=== PATIENT | female | born 1935 | race Caucasian/White ===

== ENCOUNTER 2017-02-08 10:21 | Inpatient (IN) | payer MEDICARE ==
--- NOTE | 2017-02-08 10:42 | ER Document Report ---
ED Neuro Symptoms/Deficit - General Chief Complaint: S/S of Possible Stroke Stated Complaint: STROKE SYMPTOMS Notes: The patient is an 81-year-old female, past medical history prior CVAs/TIAs, hypertension, GERD, chronic leg/back pain, hypercholesterolemia, presents with slurred speech at 1900 yesterday and now not communicating since this morning. She is alert, but unable to follow commands. She is also worsening left-sided weakness. Her blood sugar by EMS is 100. Patient will follow commands, but has an expressive aphasia and unable to provide any additional history. She nods her head no when asked if she is in any pain. Past Medical History - General Information source: Emergency Med Personnel Cannot obtain history due to: Altered mental status - Social History Smoking Status: Unknown if Ever Smoked Family History: Reviewed & Not Pertinent Physical Exam - Notes Notes: PHYSICAL EXAMINATION: GENERAL: In no acute distress. HEAD: Atraumatic, normocephalic. EYES: Pupils equal round and reactive to light, extraocular movements intact, sclera anicteric, conjunctiva are normal. ENT: nares patent, oropharynx clear without exudates. Moist mucous membranes. NECK: Normal range of motion, supple without lymphadenopathy LUNGS: Breath sounds clear to auscultation bilaterally and equal. No wheezes rales or rhonchi. HEART: Regular rate and rhythm without murmurs ABDOMEN: Soft, nontender, normoactive bowel sounds. No guarding, no rebound. No masses appreciated. EXTREMITIES: No pitting or edema. No cyanosis. NEUROLOGICAL: Patient with slight right-sided facial droop, 1 out of 5 strength in left arm, 5 out of 5 strength in right arm, 1 out of 5 strength in bilateral legs. Expressive aphasia. No sensory changes. SKIN: Warm, Dry, normal turgor, no rashes or lesions noted. Course - Re-evaluation Re-evalutation: Patient with expressive aphasia, left-sided weakness and right leg weakness that started [address] does not show a bleed. NIHSS 15 and ABCD2 score 6. Not a tPa candidate due to 15 hours of symptoms. She passed her swallow screen and was given p.o. ASA. Patient's urine shows possible early UTI with positive nitrites, leuk esterase and 14 wbc's. With her leukocytosis, will begin Rocephin and send urine culture. Patient requires inpatient admission for further evaluation and treatment of her CVA. 02/08/17 13:[address] Umaña and he will admit patient inpatient [facility]. - Laboratory Result Diagrams: 02/08/17 11:00 02/08/17 11:00 - Diagnostic Test Radiology reviewed: Image reviewed, Reports reviewed Radiology results interpreted by me: CT Head: no acute changes, chronic changes CXR: NAD - EKG Interpretation by Me EKG shows normal: Sinus rhythm, Talent, Intervals, QRS Complexes, ST-T Waves Critical Care Note - Critical Care Note Total time excluding time spent on procedures (mins): 35 ED [employer]te[employer]ase Inc/Exc Criteria - Date/Time patient last known well: Date/Time: 02/07/2017 18:30 - Inclusion Criteria: 1: Patient presented to ED within 3 hours of acute ischemic stroke symptom onset ? -: No 2: Did baseline CT exclude intracranial hemorrhage and/or other risk factors? -: Yes 3: Is the age of the patient 18 years of age or greater? -: Yes : If any of the above questions are answered "NO" then stop, patient is not a candidate for Alteplase, : If all of the above questions are answered "YES" then continue with Exclusion Criteria. - Exclusion Criteria: 1: Is there evidence of intracranial hemorrhage on baseline CT? 2: Is there suspicion of subarachnoid hemorrhage (even if CT negative)? 3: Is there a history of serious head trauma, recent previous stroke or MA within 3 months? 4: Does the patient have a clinical presentation consistent with MA or post-MA pericarditis? 5: Is there history of intracranial hemorrhage? 6: On repeated measurement is Systolic BP greater than 185mmHg or Diastolic BP greater that 110 mmHg and is aggressive treatment needed to reduce blood pressure to these limits (e.g. constant infusion of an anti-hypertensive)? 7: Did the patient awake with stroke symptoms? 8: Has the patient had a lumbar puncture or an arterial puncture at a non- compressile site within 7 days? 9: With in the last 14 days did the patient have surgery or major trauma? 10: Is the patient or less than 2 weeks? 11: Was there any active bleeding or acute trauma? 12: Does the patient have intracranial neoplasm, arteriovenous malformation or aneurysm? 13: Does the patient have abnormal glucose (less than 50 or greater than 400mg/ dl)? Record glucose in Comment. 14: Patient has rapidly improving symptoms at the time Alteplase is to be Administered. 15: Does the patient have any risks for bleeding, including but not limited to: a.: Current use of Coumadin with PT greater than 15 seconds or INR greater than 1.7. b.: Current use of Pradaxa (Dabigatran). c.: Heparin administereed within the past 48 hours and PTT elevated. d.: Platelet count less than 100,000/mm. e.: Major surgery or serious trauma within 14 days. f.: Gastrointestinal or gynecological urinary bleeding within 14 days. g.: Myocardial Infarction (MA) within 3 months. : If the answer to any of the above questions is "YES" then stop, the patient is not a candidate for Alteplase. : If the answer to all of the above questions is "NO" then the patient may be eligible for the Administration of Alteplase. : If the patient is noted to have seizure activity at onset of Stroke symptoms; Consult Neurologist for further evaluation. - The patient is: -: Included and is eligible to receive Alteplase. *Initiate bed placement at higher level of care* Reviewd risks & benefits of thrombolytic therapy: I have reviewed the risks and benefits of thrombolytic therapy with the patient and/or his/her family. -: Excluded and not eligible to receive Alteplase for the above exclusions. -: Excluded and not eligible to receive Alteplase for other reasons (specify in comments): - Diagnosis of TIA: -: Patient presented with transient symptoms that are now resolved and no other neurologic findings are currently present. List symptoms in comments. -: Patient is NOT a candidate for tPA. -: ____(put name in comment) has been consulted for admission and continued evaluation of risk factor assessment. ED NIH Stroke Scale - NIH Stroke Scale When completed:: Before Alteplase *: 1. NIH scale should be completed with appropriate accompanying assessment tools. *: 2. The NIH should reflect what the patient is capable of doing and should not be coached by the clinician. 1a. Level of Consciousness: 0=Alert;keenly responsive -: 1=Drowsy -: 2=Obtunded -: 3=Coma/unresponsive or reflex to noxious stimuli. 1a. Responses: 0 1b. Orientation Questions: a. What month is it? -: b. How old are you? -: 0=Answers both questions correctly. -: 1=Answers one question correctly or patient is intubated or has orotracheal trauma. -: 2=Answers neither question correctly. 1b. Responses: 2 1c. Response to commands: a. Open and close eyes? -: b. Drip Pumper and release hand? -: Credit is given despite weakness. Demonstration of task is permitted. Substitute command if hands cannot be used. -: 0=Performs both tasks correctly -: 1=Performs one task correctly -: 2=Performs neither task correctly 1c. Responses: 0 2. Gaze: Establish eye contact and instruct patient to "Follow my finger" -: 0=Normal -: 1=Partial gaze palsy. Gaze is abnormal in one or both eyes, but where forced deviation or total gaze paresis is not present. -: 2=Forced deviation or total gaze paresis. 2. Responses: 0 3. Visual Frausto: Sees fingers in all four quadrants. -: 0=No visual loss. -: 1=Partial hemianopsia. -: 2=Complete hemianopsia. -: 3=Bilateral hemianopsia (including Cortical blindness) 3. Responses: 0 4. Facial Movement: Instruct patient to: -: a. Show me your teeth -: b. Raise your eyebrows -: c. Close your eyes -: d. Smile -: 0=Normal symmetrical movement -: 1=Minor paralysis (flattened nasolabial fold, asymmetry on smiling). -: 2=Partial paralysis (total or near total paralysis of lower face). -: 3=Complete paralysis of upper and lower face 4. Responses: 1 5. Motor functions (left arm): Alternate sides and extend each arm with palms down (90 degrees if sitting or 45 degrees for supine). -: 0=No drift;limb holds for full 10 seconds. -: 1=Drift; limb holds but drifts down before full 10 seconds, but does not hit bed. -: 2=Some effort against gravity; limb cannot get to or maintain position. -: 3=No effort against gravity; limb falls. -: 4=No movement. -: UN=Amputation, joint fusion, explain in comments. 5. Responses (left arm): 2 5. Motor Functions (right arm): Alternate sides and extend each arm with palms down (90 degrees if sitting or 45 degrees for supine). -: 0=No drift;limb holds for full 10 seconds. -: 1=Drift; limb holds but drifts down before full 10 seconds, but does not hit bed. -: 2=Some effort against gravity; limb cannot get to or maintain position. -: 3=No effort against gravity; limb falls. -: 4=No movement. -: UN=Amputation, joint fusion, explain in comments. 5. Responses (right arm): 0 6. Motor Functions (left leg): With patient lying supine, alternate sides and extend each leg (30 degrees always while supine). -: 0=No drift, leg holds position for full 5 seconds -: 1=Drift; leg falls before full 5 seconds but does not hit bed. -: 2=Some effort against gravity, leg falls to bed but some effort against gravity. -: 3=No effort against gravity, leg falls to bed immediately. -: 4=No movement. -: UN=Amputation, joint fusion; explain in comments. 6. Responses (left leg): 3 6. Motor Functions (right leg): With patient lying supine, alternate sides and extend each leg (30 degrees always while supine). -: 0=No drift, leg holds position for full 5 seconds -: 1=Drift; leg falls before full 5 seconds but does not hit bed. -: 2=Some effort against gravity, leg falls to bed but some effort against gravity. -: 3=No effort against gravity, leg falls to bed immediately. -: 4=No movement. -: UN=Amputation, joint fusion; explain in comments. 6. Responses (right leg): 3 7. Limb Ataxia: With eyes open instruct patient to: -: a. "Touch your finger to your nose". -: b. "Touch your heel to your scott" -: 0=Absent -: 1=Present in one limb. -: 2=Present in two limbs. -: UN=Amputation or joint fusion; explain in comments. 7. Responses: 0 8. Sensory: Test sensation using pinprick or noxious stimuli. Test as many body parts as possible. -: 0=Normal;no sensory loss -: 1=Mile to moderate sensory loss (patient feels pin prick but is less sharp on affected side). -: 2=Severe or total sensory loss. 8. Responses: 0 9. Best Language: Instruct patient to: -: a. "Describe what you see in this picture." -: b. "Name the items in this picture." -: c. "Read these sentences." -: 0=No aphasia, normal -: 1=Mild to moderate aphasia. -: 2=Severe aphasia -: 3=Mute, global aphasia, no usable speech or auditory comprehension. 9. Responses: 2 10. Articulation, Dysarthia: Instruct patient to: -: "Read these words" or "Repeat these words" -: 0=Normal -: 1=Mild to moderate; patient may slur some words but can be understood without difficulty. -: 2=Severe; patients speech so slurred as to be unintelligible in the absence of dysphasia. -: UN=Intubated or other physical barrier, explain in comments. 10. Responses: 2 11. Extinction or inattention: 0=No abnormality -: 1= Visual, tactile, auditory, spatial, or personal inattention or extinction to bilateral simulation in one or the sensory modalities. -: 2=Profound darron-inattention or darron-inattention to more than one modality; does not recognize own hand. 11. Responses: 0 Total Score: 15 Discharge - Discharge Clinical Impression: CVA (cerebral vascular accident) Qualifiers: CVA mechanism: unspecified Qualified Code(s): I63.9 - Cerebral infarction, unspecified UTI (urinary tract infection) Qualifiers: Urinary tract infection type: acute cystitis Hematuria presence: without hematuria Qualified Code(s): N30.00 - Acute cystitis without hematuria Condition: Serious Disposition: ADMITTED INPATIENT Admitting Provider: [facility] Admitted: [facility]
[2017-02-08] MEDS ORDERED: ASPIRIN 81 MG TABLET, CHEWABLE PO ONE (11:13)
[2017-02-08 11:18] LABS: ABSOLUTE BASOPHILS # (AUTO) 0.1 10^3/uL (0.0-0.2); ABSOLUTE EOSINOPHILS # (AUTO) 0.1 10^3/uL (0.0-0.6); ABSOLUTE LYMPHOCYTES (AUTO) 1.8 10^3/uL (0.5-4.7); ABSOLUTE MONOCYTES (AUTO) 0.7 10^3/uL (0.1-1.4); ABSOLUTE NEUT (AUTO) 8.3 10^3/uL (1.7-8.2); BASOPHILS % (AUTO) 0.6 % (0-2); EOSINOPHILS % (AUTO) 1.2 % (0-6); HEMATOCRIT 34.3 % (36.0-47.0); HEMOGLOBIN 10.9 g/dL (12.0-15.5); HGB HCT DIFFERENCE -1.6; LYMPHOCYTES % (AUTO) 16.1 % (13-45); MEAN CORPUSCULAR HEMOGLOBIN 26.3 pg (27.0-33.4); MEAN CORPUSCULAR HGB CONC 31.9 g/dL (32.0-36.0); MEAN CORPUSCULAR VOLUME 82 fl (80-97); MONOCYTES % (AUTO) 6.3 % (3-13); RED BLOOD COUNT 4.16 10^6/uL (3.72-5.28); SEGMENTED NEUTROPHILS % (AUTO) 75.8 % (42-78)
[2017-02-08 11:23] LABS: PARTIAL THROMBOPLASTIN TIME 22.4 SEC (23.5-35.8); PROTHROMBIN TIME 13.4 SEC (11.4-15.4)
[2017-02-08 11:36] LABS: ALANINE AMINOTRANSFERASE 21 U/L (9-52); ALBUMIN 3.9 g/dL (3.5-5.0); ALKALINE PHOSPHATASE 68 U/L (38-126); ANION GAP 12 (5-19); ASPARTATE AMINO TRANSFERASE 25 U/L (14-36); BILIRUBIN,DIRECT 0.2 mg/dL (0.0-0.4); BILIRUBIN,TOTAL 0.7 mg/dL (0.2-1.3); BLOOD UREA NITROGEN 15 mg/dL (7-20); CALCIUM 9.4 mg/dL (8.4-10.2); CARBON DIOXIDE 23 mmol/L (22-30); CHLORIDE 107 mmol/L (98-107); CREATINE KINASE 67 U/L (30-135); CREATININE RESULT 0.66 mg/dL (0.52-1.25); GLUCOSE 93 mg/dL (75-110); POTASSIUM 4.1 mmol/L (3.6-5.0); SODIUM 142.2 mmol/L (137-145); TOTAL PROTEIN 6.5 g/dL (6.3-8.2)
[2017-02-08 13:09] LABS: APPEARANCE,URINE SLIGHTLY-CLOUDY; BILIRUBIN,URINE NEGATIVE (NEGATIVE); GLUCOSE, URINE NEGATIVE (NEGATIVE); KETONES,URINE 20 mg/dL (NEGATIVE); LEUKOCYTE ESTERASE,URINE SMALL (NEGATIVE); NITRITE,URINE POSITIVE (NEGATIVE); PROTEIN,URINE NEGATIVE (NEGATIVE); URINE SPECIFIC GRAVITY 1.017; UROBILINOGEN,URINE NEGATIVE mg/dL (<2.0)
[2017-02-08] MEDS ORDERED: CEFTRIAXONE 1 GM/D5W RTU 50 ML IV ONE (13:38)
[2017-02-08] MEDS ORDERED: ONDANSETRON HCL INJ/PF 4 MG/2 ML SDV IV PRN (14:34)
[2017-02-08] MEDS ORDERED: ACETAMINOPHEN 325 MG TABLET PO PRN (14:34)
[2017-02-08] MEDS ORDERED: MAGNESIUM HYDROXIDE SUSP 30 ML UDCUP PO PRN (14:39)
[2017-02-08] MEDS ORDERED: DOCUSATE SODIUM 100 MG CAPSULE PO PRN (14:39)
--- NOTE | 2017-02-08 15:07 | PDOC H&P ---
History of Present Illness Admission Date/PCP: 02/08/17 14:02 Patient complains of: Weakness with an inability to talk History of Present Illness: TAMARA STEPHENS is a 81 year old female presented to the emergency department from home where she lives with her daughter as her primary caregiver and carries a 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 Daughter reports returning home from work yesterday at around 1700 to find her sleeping and somewhat lethargic upon arousing. She awoke in took her usual evening medications and then went back to sleep awaking again at 1900 but this time with slurred speech and generalized weakness and agitation. She was able to answer very clearly in yes or no responses to simple questions and she was able to swallow and took some aspirin at that time. The daughter checked on her through the night and she seemed to be sleeping okay. This morning, however, when she arose she was speaking only and mumbles, gerbils and word salad described by the daughter. She also could not move her left arm and leg. On arrival in the emergency department she was found to have an expressive aphasia with left arm and leg weakness. We were asked to admit for further evaluation and management of presumptive stroke. She takes an aspirin daily. 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 She does not smoke or consume alcohol. She has a long-standing history of hypertension with congestive heart failure and hyperlipidemia. She receives her primary care in [place] with a Dr. Rivera and has yet to establish with primary locally. She carries with her a community DO NOT RESUSCITATE. Past Medical History Cardiac Medical History: Reports: Congestive Heart Failure, Hyperlipidema, Hypertension, Pulmonary Embolism Denies: Atrial Fibrillation Pulmonary Medical History: Reports: None Neurological Medical History: Reports: Ischemic CVA Endocrine Medical History: Denies: Diabetes Mellitus Type 2 Renal/ Medical History: Reports: None Malignancy Medical History: Reports: None GI Medical History: Reports: Diverticulitis, Other - GI bleed Psychiatric Medical History: Reports: None Past Surgical History Past Surgical History: Reports: Vascular Surgery Social History Information Source: Relative Lives with: Family Smoking Status: Never Smoker Frequency of Alcohol Use: None Hx Recreational Drug Use: No Hx Prescription Drug Abuse: No - Advance Directive Resuscitation Status: Do Not Resuscitate Family History Family History: Reviewed & Not Pertinent, CAD Parental Family History Reviewed: Yes Children Family History Reviewed: Yes Sibling(s) Family History Reviewed.: Yes Medication/Allergy Allergies/Adverse Reactions: codeine Allergy (Verified 02/08/17 14:45) Review of Systems Constitutional: ABSENT: chills, fever(s), headache(s), weight gain, weight loss Eyes: ABSENT: visual disturbances Ears: ABSENT: hearing changes Cardiovascular: ABSENT: chest pain, dyspnea on exertion, edema, orthropnea, palpitations Respiratory: ABSENT: cough, hemoptysis Gastrointestinal: ABSENT: abdominal pain, constipation, diarrhea, hematemesis, hematochezia, nausea, vomiting Genitourinary: ABSENT: dysuria, hematuria Musculoskeletal: ABSENT: joint swelling Integumentary: ABSENT: rash, wounds Neurological: PRESENT: abnormal speech. ABSENT: abnormal gait, confusion, dizziness, focal weakness, syncope Psychiatric: ABSENT: anxiety, depression Endocrine: ABSENT: cold intolerance, heat intolerance, polydipsia, polyuria Hematologic/Lymphatic: ABSENT: easy bleeding, easy bruising Physical Exam Vital Signs: Temp Pulse Resp BP Pulse Ox 85 18 125/86 H 96 02/08/17 13:57 02/08/17 13:57 02/08/17 13:57 02/08/17 13:57 EXAM GENERAL: NAD; well developed, well nourished; no obese; alert and talkative HEENT: normocephalic, atraumatic; no conjunctival injection, no scleral icterus ; oral mucosa moist; RESPIRATORY: no accessory muscle use, no increased WOB, good air entry bilaterally; no wheezes, rales, rhonchi; no inspiratory crackles CARDIO: no JVD; RRR; no systolic murmur; no tachycardia GI: soft; nondistended; normal bowel sounds; no hepato spleno megaly; no rebound, rigidity, guarding VASCULAR: no carotid bruit; no abdominal bruit; no pallor; 2+ radial, DP pulse ; normal capillary refill NEURO: Left lateral gaze palsy, right-sided nystagmus, tongue protrudes midline , unable to perform cerebellar testing, left arm weak compared to right, bilateral upper extremity resting tremors new, increased muscle tone diffusely, decreased reflexes at the patella and brachial radialis but symmetric, seems able to answer simple yes or no questions and will follow simple one-step commands only, becomes very frustrated with an obvious expressive aphasia, no swallowing difficulty and passed her nursing bedside swallow eval, no pronator drift but not sure she completely understood the directions EXTREMITIES: no calf tender; no palpable cords in calf; no clubbing, cyanosis , pedal edema PSYCH: normal affect, frustrated mood SKIN: warm, very pale; moist; no petechiae; no telengectasias; no jaundice; no rash Results Laboratory Results: Labs reviewed, CMP normal, CBC unremarkable, coags normal, troponin negative at less than 0.012 Impressions: Chest X-Ray 02/08/17 10:23 IMPRESSION: NO ACUTE RADIOGRAPHIC FINDING IN THE CHEST. Head CT 02/08/17 10:23 IMPRESSION: CHRONIC CHANGES OF ATROPHY AND MICROVASCULAR ISCHEMIA. NO ACUTE PROCESS. Status: Image reviewed by me - Noncontrasted CT of the head reviewed and I disagree with the radiologist, in the left caudate nucleus, external capsule and perhaps even the internal capsule I see very subtle highlighted areas; furthermore there appears to be a large right occipital infarct with resulting encephalomalacia do not believe it is a sulcus Assessment & Plan - Diagnosis (1) CVA (cerebral vascular accident) Qualifiers: CVA mechanism: unspecified Qualified Code(s): I63.9 - Cerebral infarction, unspecified Is this a current diagnosis for this admission?: YesPlan: Patient will be admitted to the [facility] for continued neurologic exam, initiation of physical, occupational, speech therapy, changed to Plavix therapy, check lipids, carotid Dopplers, MRI of the brain, echocardiogram, hemoglobin A1c and other electrolytes looking for correctable causes. Allow permissive hypertension for the first 48 hours. Check lipid panel in the morning. (2) Hypertension Is this a current diagnosis for this admission?: Yes (3) Hyperlipidemia Is this a current diagnosis for this admission?: Yes (4) History of DVT (deep vein thrombosis) Is this a current diagnosis for this admission?: Yes (5) History of GI bleed Is this a current diagnosis for this admission?: Yes (6) Presence of IVC filter Is this a current diagnosis for this admission?: Yes (7) Do not resuscitate Is this a current diagnosis for this admission?: Yes - Time Time Spent: 50 to 70 Minutes Medications reviewed and adjusted accordingly: Yes Anticipated discharge: SNF Within: within 72 hours - Inpatient Certification Medical Necessity: Significant Comorbidiites Make Outpatient Treatment Too Risky , Need For Continuous Telemetry Monitoring, Need for Neurological Checks, Risk of Complication if Not Cared For in Hospital
--- NOTE | 2017-02-08 17:16 | EKG REPORT ---
SEVERITY:- BORDERLINE ECG - SINUS RHYTHM BORDERLINE PROLONGED QT INTERVAL : Confirmed by: Ronald Collado MD 08-Feb-2017 17:15:59
[2017-02-08] MEDS: GABAPENTIN 100 MG CAPSULE PO SCH (18:05)
[2017-02-08] MEDS: ATORVASTATIN CALCIUM 80 MG TABLET PO SCH (22:53)
[2017-02-08] MEDS: LORAZEPAM 1 MG TABLET PO SCH (22:53)
[2017-02-08] MEDS: FAMOTIDINE INJ/PF 20 MG/2 ML SDV IV SCH (22:53)
[2017-02-09 06:37] LABS: CHOLESTEROL 137.81 mg/dL (0-200); Direct HDL 58 mg/dL (>40); TRIGLYCERIDES 96 mg/dL (<150)
[2017-02-09 06:47] LABS: DIRECT LDL 56 mg/dL (<100)
[2017-02-09] MEDS: ENOXAPARIN SODIUM INJ 40 MG/0.4 ML DISP.SYRIN SUBCUT SCH (08:44)
[2017-02-09] MEDS: GABAPENTIN 100 MG CAPSULE PO SCH ×2 (10:21→17:21)
[2017-02-09] MEDS: CLOPIDOGREL BISULFATE 75 MG TABLET PO SCH (10:21)
[2017-02-09] MEDS: CITALOPRAM HYDROBROMIDE 20 MG TABLET PO SCH (10:21)
[2017-02-09] MEDS: FAMOTIDINE INJ/PF 20 MG/2 ML SDV IV SCH ×2 (10:22→21:34)
--- NOTE | 2017-02-09 12:02 | PDOC PROGRESS REPORT ---
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 Daughter reports returning home from work yesterday at around 1700 to find her sleeping and somewhat lethargic upon arousing. She awoke in took her usual evening medications and then went back to sleep awaking again at 1900 but this time with slurred speech and generalized weakness and agitation. She was able to answer very clearly in yes or no responses to simple questions and she was able to swallow and took some aspirin at that time. The daughter checked on her through the night and she seemed to be sleeping okay. This morning, however, when she arose she was speaking only and mumbles, gerbils and word salad described by the daughter. She also could not move her left arm and leg. On arrival in the emergency department she was found to have an expressive aphasia with left arm and leg weakness. We were asked to admit for further evaluation and management of presumptive stroke. She takes an aspirin daily. 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 She does not smoke or consume alcohol. She has a long-standing history of hypertension with congestive heart failure and hyperlipidemia. She receives her primary care in [place] with a Dr. Rivera and has yet to establish with primary locally. She carries with her a community DO NOT RESUSCITATE. admitted and monitored overnight on telemetry without significant ectopy or arrhythmia. MRI of brain shows significant old stroke and encephalomalacia with mod to severe vascular ischemic disease but no focal area of new ischemia. echo and carotids are pending Friday. lipid panel is good. B12 is normal. Troponin is negative. subjective: she is overall improved, her speech is better, able to complete some sentences though still word searching at times. she laughs uncontrollably at times, not always in context. she is moving all 4 ext's and her strength is now symmetric. daughter at the bedside says she did not do well with PT, unable to bear her own weight or ambulate. Physical Exam Vital Signs: Temp Pulse Resp BP Pulse Ox 97.8 F 87 16 117/56 L 96 02/09/17 08:02 02/09/17 08:02 02/09/17 08:02 02/09/17 08:02 02/09/17 08:02 Intake & Output 02/08/17 02/09/17 02/10/17 06:59 06:59 06:59 Intake Total 15 Balance 15 Weight 62.7 kg EXAM GENERAL: NAD; well developed, well nourished; no obese; alert and talkative, able to complete most sentences and answers are appropriate HEENT: normocephalic, atraumatic; no conjunctival injection, no scleral icterus ; oral mucosa moist; RESPIRATORY: no accessory muscle use, no increased WOB, good air entry bilaterally; no wheezes, rales, rhonchi; no inspiratory crackles CARDIO: no JVD; RRR; no systolic murmur; no tachycardia GI: soft; nondistended; normal bowel sounds; no rebound, rigidity, guarding; nontender VASCULAR: no pallor; 2+ radial, DP pulse; normal capillary refill NEURO: resolution of Left lateral gaze palsy, & right-sided nystagmus; tongue protrudes midline, no swallowing difficulty and passed her nursing bedside swallow eval, no pronator drift; strength is bilat at least 4/5; sensation intact - markedly improved neuro exam today EXTREMITIES: no calf tender; no palpable cords in calf; no clubbing, cyanosis , pedal edema PSYCH: abnormal affect, normal mood SKIN: warm, very pale; moist; no petechiae; no telengectasias; no jaundice; no rash Results Laboratory Results: 02/09/17 05:40 Triglycerides 96 Cholesterol 137.81 LDL Cholesterol Direct 56 VLDL Cholesterol 19.0 HDL Cholesterol 58 Vitamin B12 480.0 Impressions: Head MRI 02/08/17 00:00 IMPRESSION: ATROPHY, ENCEPHALOMALACIA, AND CHRONIC MICRO-VASCULAR ISCHEMIC CHANGES DETAILED ABOVE. OTHERWISE NORMAL MRI OF THE BRAIN WITHOUT INTRAVENOUS GADOLINIUM CONTRAST. Chest X-Ray 02/08/17 10:23 IMPRESSION: NO ACUTE RADIOGRAPHIC FINDING IN THE CHEST. Head CT 02/08/17 10:23 IMPRESSION: CHRONIC CHANGES OF ATROPHY AND MICROVASCULAR ISCHEMIA. NO ACUTE PROCESS. Status: Image reviewed by me - agree with radiology Assessment & Plan - Diagnosis (1) CVA (cerebral vascular accident) Qualifiers: CVA mechanism: unspecified Qualified Code(s): I63.9 - Cerebral infarction, unspecified Is this a current diagnosis for this admission?: YesPlan: MRI neg for acute ischemia but no question clinically for a CVA. daughter also now reports worsening ST memory loss, wandering and emotional lability at home, questioning dementia confounding her picture. continue physical, occupational, speech therapy; changed to Plavix therapy f/u carotid Dopplers, echocardiogram, hemoglobin A1c and other electrolytes looking for correctable causes. Allow permissive hypertension for the first 48 hours. (2) Hypertension Is this a current diagnosis for this admission?: Yes (3) Hyperlipidemia Is this a current diagnosis for this admission?: Yes (4) History of DVT (deep vein thrombosis) Is this a current diagnosis for this admission?: Yes (5) History of GI bleed Is this a current diagnosis for this admission?: Yes (6) Presence of IVC filter Is this a current diagnosis for this admission?: Yes (7) Do not resuscitate Is this a current diagnosis for this admission?: Yes - Time Time Spent with patient: 25-34 minutes Anticipated discharge: SNF Within: within 48 hours
[2017-02-09] MEDS: LORAZEPAM 1 MG TABLET PO SCH (21:32)
[2017-02-09] MEDS: ATORVASTATIN CALCIUM 80 MG TABLET PO SCH (21:32)
[2017-02-10 06:13] LABS: ABSOLUTE BASOPHILS # (AUTO) 0.1 10^3/uL (0.0-0.2); ABSOLUTE EOSINOPHILS # (AUTO) 0.4 10^3/uL (0.0-0.6); ABSOLUTE LYMPHOCYTES (AUTO) 2.4 10^3/uL (0.5-4.7); ABSOLUTE NEUT (AUTO) 4.3 10^3/uL (1.7-8.2); EOSINOPHILS % (AUTO) 4.3 % (0-6); HEMATOCRIT 32.9 % (36.0-47.0); HEMOGLOBIN 10.7 g/dL (12.0-15.5); HGB HCT DIFFERENCE -0.8; LYMPHOCYTES % (AUTO) 29.9 % (13-45); MEAN CORPUSCULAR HEMOGLOBIN 26.5 pg (27.0-33.4); MEAN CORPUSCULAR HGB CONC 32.4 g/dL (32.0-36.0); MEAN CORPUSCULAR VOLUME 82 fl (80-97); MONOCYTES % (AUTO) 12.3 % (3-13); RED BLOOD COUNT 4.02 10^6/uL (3.72-5.28); RED CELL DISTRIBUTION WIDTH 16.2 % (11.5-14.0); SEGMENTED NEUTROPHILS % (AUTO) 52.5 % (42-78); WHITE BLOOD COUNT 8.2 10^3/uL (4.0-10.5)
[2017-02-10] MEDS: ENOXAPARIN SODIUM INJ 40 MG/0.4 ML DISP.SYRIN SUBCUT SCH (08:39)
[2017-02-10] MEDS: CLOPIDOGREL BISULFATE 75 MG TABLET PO SCH (11:32)
[2017-02-10] MEDS: CITALOPRAM HYDROBROMIDE 20 MG TABLET PO SCH (11:32)
[2017-02-10] MEDS: GABAPENTIN 100 MG CAPSULE PO SCH ×2 (11:32→18:14)
[2017-02-10] MEDS: FAMOTIDINE INJ/PF 20 MG/2 ML SDV IV SCH ×2 (11:33→22:57)
--- NOTE | 2017-02-10 15:46 | PDOC PROGRESS REPORT ---
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 Daughter reports returning home from work yesterday at around 1700 to find her sleeping and somewhat lethargic upon arousing. She awoke in took her usual evening medications and then went back to sleep awaking again at 1900 but this time with slurred speech and generalized weakness and agitation. She was able to answer very clearly in yes or no responses to simple questions and she was able to swallow and took some aspirin at that time. The daughter checked on her through the night and she seemed to be sleeping okay. This morning, however, when she arose she was speaking only and mumbles, gerbils and word salad described by the daughter. She also could not move her left arm and leg. On arrival in the emergency department she was found to have an expressive aphasia with left arm and leg weakness. We were asked to admit for further evaluation and management of presumptive stroke. She takes an aspirin daily. 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 She does not smoke or consume alcohol. She has a long-standing history of hypertension with congestive heart failure and hyperlipidemia. She receives her primary care in [place] with a Dr. Rivera and has yet to establish with primary locally. She carries with her a community DO NOT RESUSCITATE. admitted and monitored overnight on telemetry without significant ectopy or arrhythmia. MRI of brain shows significant old stroke and encephalomalacia with mod to severe vascular ischemic disease but no focal area of new ischemia. echo and carotids are pending Friday. lipid panel is good. B12 is normal. Troponin is negative. subjective: she is overall improved, her speech is better, able to complete some sentences though still word searching at times. she is moving all 4 ext's and her strength is now symmetric. daughter at the bedside says she did not do well with PT, barely able to bear her own weight and ambulates with 2 assist and walker but only short distances. Physical Exam Vital Signs: Temp Pulse Resp BP Pulse Ox 97.5 F 89 20 136/59 H 99 02/10/17 12:00 02/10/17 14:00 02/10/17 12:00 02/10/17 12:00 02/10/17 12:00 Intake & Output 02/09/17 02/10/17 02/11/17 06:59 06:59 06:59 Intake Total 15 620 218 Balance 15 620 218 Weight 62.7 kg 63 kg EXAM GENERAL: NAD; well developed, well nourished; no obese; alert and talkative, able to complete most sentences and answers are appropriate; still stutters and struggles for words at times becoming very frustrated HEENT: normocephalic, atraumatic; no conjunctival injection, no scleral icterus ; oral mucosa moist; RESPIRATORY: no accessory muscle use, no increased WOB, good air entry bilaterally; no wheezes, rales, rhonchi; no inspiratory crackles CARDIO: no JVD; RRR; no systolic murmur; no tachycardia GI: soft; nondistended; normal bowel sounds; no rebound, rigidity, guarding; nontender VASCULAR: no pallor; 2+ radial, DP pulse; normal capillary refill NEURO: resolution of Left lateral gaze palsy & right-sided nystagmus; tongue protrudes midline, no swallowing difficulty and passed her nursing bedside swallow eval, no pronator drift; strength is symmetric bilat at least 4/5; sensation intact - markedly improved neuro exam today EXTREMITIES: no calf tender; no palpable cords in calf; no clubbing, cyanosis , pedal edema PSYCH: abnormal affect, normal mood SKIN: warm, very pale; moist; no petechiae; no telengectasias; no jaundice; no rash Results Laboratory Results: 02/10/17 05:18 02/10/17 05:18 WBC 8.2 RBC 4.02 Hgb 10.7 L Hct 32.9 L MCV 82 MCH 26.5 L MCHC 32.4 RDW 16.2 H Plt Count 355 Seg Neutrophils % 52.5 Lymphocytes % 29.9 Monocytes % 12.3 Eosinophils % 4.3 Basophils % 1.0 Absolute Neutrophils 4.3 Absolute Lymphocytes 2.4 Absolute Monocytes 1.0 Absolute Eosinophils 0.4 Absolute Basophils 0.1 Impressions: Head MRI 02/08/17 00:00 IMPRESSION: ATROPHY, ENCEPHALOMALACIA, AND CHRONIC MICRO-VASCULAR ISCHEMIC CHANGES DETAILED ABOVE. OTHERWISE NORMAL MRI OF THE BRAIN WITHOUT INTRAVENOUS GADOLINIUM CONTRAST. Chest X-Ray 02/08/17 10:23 IMPRESSION: NO ACUTE RADIOGRAPHIC FINDING IN THE CHEST. Head CT 02/08/17 10:23 IMPRESSION: CHRONIC CHANGES OF ATROPHY AND MICROVASCULAR ISCHEMIA. NO ACUTE PROCESS. Status: Imported from PACS Assessment & Plan - Diagnosis (1) CVA (cerebral vascular accident) Qualifiers: CVA mechanism: unspecified Qualified Code(s): I63.9 - Cerebral infarction, unspecified Is this a current diagnosis for this admission?: Yes (2) Hypertension Is this a current diagnosis for this admission?: Yes (3) Hyperlipidemia Is this a current diagnosis for this admission?: Yes (4) History of DVT (deep vein thrombosis) Is this a current diagnosis for this admission?: Yes (5) History of GI bleed Is this a current diagnosis for this admission?: Yes (6) Presence of IVC filter Is this a current diagnosis for this admission?: Yes (7) Do not resuscitate Is this a current diagnosis for this admission?: Yes - Time Time Spent with patient: 25-34 minutes - Plan Summary Plan Summary: Discussed with [facility] social insurance adviser who will begin seeking placement for rehabilitation options. Discussed with the daughter at the bedside, all questions asked and answered to her satisfaction.
--- NOTE | 2017-02-10 20:17 | XCELERA REPORT ---
[address] [address] Transthoracic Echocardiogram Report Name: TAMARA STEPHENS Age: 81 yrs Gender: Female : 1935 Patient Status: Inpatient Patient Location: 3W\S\320\S\A Study Date: 02/10/2017 01:47 PM Height: 63 in Weight: 130 lb BSA: 1.6 m2 Procedure: A complete two-dimensional transthoracic echocardiogram was performed (2D, M-mode, spectral and color flow Doppler). The study was technically difficult with many images being suboptimal in quality. Reason For Study: cva Ordering Physician: DONAVON JOHNSON Performed By: Celestine Alejandre Interpretation Summary The study was technically difficult with many images being suboptimal in quality. The Ejection Fraction estimate is 50-55% The left ventricular ejection fraction is preserved. The left ventricle is grossly normal size. There is borderline concentric left ventricular hypertrophy. Doppler measurements suggest pseudonormalized left ventricular relaxation, which is associated with grade II/IV or mild to moderate diastolic dysfunction Wall motion cannot be accurately commented on, but no definite regional wall motion abnormalities noted. The right ventricular systolic function is normal. The right atrium is normal in size The left atrium is mildly dilated. There is a trace to mild amount of mitral regurgitation There is no mitral valve stenosis. There is a mild to moderate amount of aortic regurgitation There is no aortic valve stenosis There is a trace or physiologic amount of tricuspid regurgitation Tricuspid regurgitation jet envelope not well defined to measure RV systolic pressure accurately. There is no pericardial effusion. No definite cardiac source of CVA/TIA noted on this particular trans- thoracic study. Consider DEEPAK if clinically indicated. MMode/2D Measurements \T\ Calculations RVDd: 2.2 cm LVIDd: 4.8 cm FS: 24.9 % Ao root diam: 2.8 cm IVSd: 0.89 cm LVIDs: 3.6 cm EDV(Teich): 106.2 ml LVPWd: 0.90 cm ESV(Teich): 53.9 ml Ao root area: 6.1 cm2 EF(Teich): 49.3 % LA dimension: 3.9 cm Doppler Measurements \T\ Calculations MV E max sofia: MV P1/2t max sofia: Ao V2 max: AI max sofia: 93.3 cm/sec 95.3 cm/sec 173.0 cm/sec 396.2 cm/sec MV A max sofia: MV P1/2t: 46.3 msec Ao max PG: AI max P.1 cm/sec 12.0 mmHg 62.9 mmHg MV E/A: 0.90 MVA(P1/2t): 4.7 cm2 AI dec slope: MV dec slope: 602.1 cm/sec2 329.8 cm/sec2 AI P1/2t: 351.8 msec LV V1 max PG: PA V2 max: TR max sofia: RAP systole: 2.7 mmHg 80.0 cm/sec 222.1 cm/sec 10.0 mmHg LV V1 max: PA max P.6 mmHg TR max P.9 cm/sec 20.2 mmHg RVSP(TR): 30.2 mmHg Left Ventricle The left ventricle is grossly normal size. There is borderline concentric left ventricular hypertrophy. The left ventricular ejection fraction is preserved. The Ejection Fraction estimate is 50-55%. Doppler measurements suggest pseudonormalized left ventricular relaxation, which is associated with grade II/IV or mild to moderate diastolic dysfunction. Wall motion cannot be accurately commented on, but no definite regional wall motion abnormalities noted. Right Ventricle The right ventricle is grossly normal size. There is normal right ventricular wall thickness. The right ventricular systolic function is normal. Atria The right atrium is normal in size. The left atrium is mildly dilated. Interarterial septum not well visualized and not well dopplered. Cannot comment on ASD/PFO presence. Mitral Valve The mitral valve leaflets are sclerotic, but show no functional abnormalities. There is no mitral valve stenosis. There is a trace to mild amount of mitral regurgitation. Aortic Valve The aortic valve is sclerotic, but shows no functional abnormality. There is no aortic valve stenosis. There is a mild to moderate amount of aortic regurgitation. Tricuspid Valve The tricuspid valve is not well visualized secondary to technical limitations. There is no tricuspid stenosis. There is a trace or physiologic amount of tricuspid regurgitation. Tricuspid regurgitation jet envelope not well defined to measure RV systolic pressure accurately. Pulmonic Valve The pulmonic valve is not well visualized. Great Vessels The aortic root is not well visualized. The inferior vena cava was not well visualized. Effusions There is no pericardial effusion. Incidental Findings No definite cardiac source of CVA/TIA noted on this particular trans- thoracic study. Consider DEEPAK if clinically indicated. May consider mobile cardiac telemetry monitoring (MCT) for ruling out transient AFIB. : DONAVON JOHNSON > Anastasia Renee
[2017-02-10] MEDS: ATORVASTATIN CALCIUM 80 MG TABLET PO SCH (22:57)
[2017-02-10] MEDS: LORAZEPAM 1 MG TABLET PO SCH (22:57)
[2017-02-11 06:33] LABS: ABSOLUTE BASOPHILS # (AUTO) 0.1 10^3/uL (0.0-0.2); ABSOLUTE EOSINOPHILS # (AUTO) 0.4 10^3/uL (0.0-0.6); ABSOLUTE LYMPHOCYTES (AUTO) 2.4 10^3/uL (0.5-4.7); ABSOLUTE MONOCYTES (AUTO) 0.9 10^3/uL (0.1-1.4); BASOPHILS % (AUTO) 0.8 % (0-2); EOSINOPHILS % (AUTO) 5.5 % (0-6); HEMATOCRIT 34.8 % (36.0-47.0); HEMOGLOBIN 11.1 g/dL (12.0-15.5); HGB HCT DIFFERENCE -1.5; LYMPHOCYTES % (AUTO) 30.3 % (13-45); MEAN CORPUSCULAR HEMOGLOBIN 26.4 pg (27.0-33.4); MEAN CORPUSCULAR HGB CONC 31.8 g/dL (32.0-36.0); MEAN CORPUSCULAR VOLUME 83 fl (80-97); RED CELL DISTRIBUTION WIDTH 15.9 % (11.5-14.0); SEGMENTED NEUTROPHILS % (AUTO) 51.4 % (42-78); WHITE BLOOD COUNT 7.9 10^3/uL (4.0-10.5)
[2017-02-11 07:06] LABS: ALANINE AMINOTRANSFERASE 23 U/L (9-52); ALBUMIN 3.9 g/dL (3.5-5.0); ALKALINE PHOSPHATASE 66 U/L (38-126); ANION GAP 9 (5-19); ASPARTATE AMINO TRANSFERASE 34 U/L (14-36); BILIRUBIN,DIRECT 0.2 mg/dL (0.0-0.4); BILIRUBIN,TOTAL 0.7 mg/dL (0.2-1.3); BLOOD UREA NITROGEN 8 mg/dL (7-20); CALCIUM 9.7 mg/dL (8.4-10.2); CARBON DIOXIDE 29 mmol/L (22-30); CHLORIDE 105 mmol/L (98-107); CREATININE RESULT 0.66 mg/dL (0.52-1.25); GLUCOSE 89 mg/dL (75-110); POTASSIUM 4.3 mmol/L (3.6-5.0); SODIUM 142.6 mmol/L (137-145); TOTAL PROTEIN 6.6 g/dL (6.3-8.2)
[2017-02-11] MEDS: CITALOPRAM HYDROBROMIDE 20 MG TABLET PO SCH (11:23)
[2017-02-11] MEDS: FAMOTIDINE INJ/PF 20 MG/2 ML SDV IV SCH ×2 (11:24→21:29)
[2017-02-11] MEDS: CLOPIDOGREL BISULFATE 75 MG TABLET PO SCH (11:24)
[2017-02-11] MEDS: GABAPENTIN 100 MG CAPSULE PO SCH ×2 (11:24→18:30)
[2017-02-11] MEDS: ENOXAPARIN SODIUM INJ 40 MG/0.4 ML DISP.SYRIN SUBCUT SCH (11:25)
--- NOTE | 2017-02-11 16:31 | PDOC PROGRESS REPORT ---
Subjective Progress Note for:: 02/11/17 Subjective:: Patient has been quite stable ; she still has aphasia She is tolerating a mechanical soft diet She has been working with physical therapy She has a bed at [facility] [place] in skilled rehabilitation Physical Exam Vital Signs: Temp Pulse Resp BP Pulse Ox 97.9 F 91 18 133/50 H 96 02/11/17 11:25 02/11/17 11:25 02/11/17 11:25 02/11/17 11:25 02/11/17 11:25 Intake & Output 02/10/17 02/11/17 02/12/17 00:59 00:59 00:59 Intake Total 630 576 355 Balance 630 576 355 Weight 62.7 kg 63 kg 68.8 kg General appearance: PRESENT: no acute distress, cooperative Head exam: PRESENT: atraumatic, normocephalic Eye exam: PRESENT: conjunctiva pink, EOMI, PERRLA, other - Is a slight facial droop. ABSENT: scleral icterus Mouth exam: PRESENT: moist, tongue midline Neck exam: ABSENT: carotid bruit, JVD, lymphadenopathy, thyromegaly Respiratory exam: PRESENT: clear to auscultation [place]. ABSENT: rales, rhonchi, wheezes Cardiovascular exam: PRESENT: RRR. ABSENT: diastolic murmur, rubs, systolic murmur GI/Abdominal exam: PRESENT: normal bowel sounds, soft. ABSENT: distended, guarding, mass, organolmegaly, rebound, tenderness Extremities exam: PRESENT: full ROM. ABSENT: calf tenderness, clubbing, pedal edema Neurological exam: PRESENT: alert, awake, CN II-XII grossly intact Skin exam: PRESENT: dry, intact, warm. ABSENT: cyanosis, rash Results Laboratory Results: 02/11/17 05:34 02/11/17 05:34 02/11/17 02/11/17 05:34 05:34 WBC 7.9 RBC 4.20 Hgb 11.1 L Hct 34.8 L MCV 83 MCH 26.4 L MCHC 31.8 L RDW 15.9 H Plt Count 357 Seg Neutrophils % 51.4 Lymphocytes % 30.3 Monocytes % 12.0 Eosinophils % 5.5 Basophils % 0.8 Absolute Neutrophils 4.0 Absolute Lymphocytes 2.4 Absolute Monocytes 0.9 Absolute Eosinophils 0.4 Absolute Basophils 0.1 Sodium 142.6 Potassium 4.3 Chloride 105 Carbon Dioxide 29 Anion Gap 9 BUN 8 Creatinine 0.66 Est GFR ( Amer) > 60 Est GFR (Non-Af Amer) > 60 Glucose 89 Calcium 9.7 Total Bilirubin 0.7 AST 34 ALT 23 Alkaline Phosphatase 66 Total Protein 6.6 Albumin 3.9 Impressions: Head MRI 02/08/17 00:00 IMPRESSION: ATROPHY, ENCEPHALOMALACIA, AND CHRONIC MICRO-VASCULAR ISCHEMIC CHANGES DETAILED ABOVE. OTHERWISE NORMAL MRI OF THE BRAIN WITHOUT INTRAVENOUS GADOLINIUM CONTRAST. Chest X-Ray 02/08/17 10:23 IMPRESSION: NO ACUTE RADIOGRAPHIC FINDING IN THE CHEST. Head CT 02/08/17 10:23 IMPRESSION: CHRONIC CHANGES OF ATROPHY AND MICROVASCULAR ISCHEMIA. NO ACUTE PROCESS. Carotid Doppler Study 02/10/17 00:00 IMPRESSION: NO HEMODYNAMICALLY SIGNIFICANT STENOSIS. Assessment & Plan - Diagnosis (1) CVA (cerebral vascular accident) Qualifiers: CVA mechanism: unspecified Qualified Code(s): I63.9 - Cerebral infarction, unspecified Is this a current diagnosis for this admission?: Yes (2) Do not resuscitate Is this a current diagnosis for this admission?: Yes (3) Hyperlipidemia Is this a current diagnosis for this admission?: Yes (4) Hypertension Is this a current diagnosis for this admission?: Yes (5) Presence of IVC filter Is this a current diagnosis for this admission?: Yes (6) UTI (urinary tract infection) Qualifiers: Urinary tract infection type: acute cystitis Hematuria presence: without hematuria Qualified Code(s): N30.00 - Acute cystitis without hematuria Is this a current diagnosis for this admission?: YesPlan: Urine culture had been performed likely because patient could not void. We will give the patient 5 days of Keflex 500 mg by mouth twice a day - Time Time Spent with patient: Patient to be transferred tomorrow to skilled rehabilitation We did add vitamin B-12 thousand micrograms daily as the level was on the low side at 400 We will obtain TSH prior to her release Patient to be discharged in a.m. if stable Time Spent with patient: 15-24 minutes
[2017-02-11] MEDS ORDERED: CYANOCOBALAMIN (VITAMIN B-12) 1,000 MCG TABLET PO SCH (18:00)
[2017-02-11] MEDS: ATORVASTATIN CALCIUM 80 MG TABLET PO SCH (21:23)
[2017-02-11] MEDS: LORAZEPAM 1 MG TABLET PO SCH (21:23)
[2017-02-11] MEDS: CEPHALEXIN 500 MG CAPSULE PO SCH (21:23)
[2017-02-12] MEDS: ENOXAPARIN SODIUM INJ 40 MG/0.4 ML DISP.SYRIN SUBCUT SCH (07:33)
[2017-02-12] MEDS: FAMOTIDINE INJ/PF 20 MG/2 ML SDV IV SCH (09:46)
[2017-02-12] MEDS: CEPHALEXIN 500 MG CAPSULE PO SCH (09:47)
[2017-02-12] MEDS: CLOPIDOGREL BISULFATE 75 MG TABLET PO SCH (09:47)
[2017-02-12] MEDS: CITALOPRAM HYDROBROMIDE 20 MG TABLET PO SCH (09:47)
[2017-02-12] MEDS: GABAPENTIN 100 MG CAPSULE PO SCH (09:47)
--- NOTE | 2017-02-12 09:59 | PDOC TRANSFER SUMMARY ---
General - Admit/Disc Date/PCP Admission Date/Primary Care Provider: 02/08/17 14:34 Discharge Date: 02/12/17 - Discharge Diagnosis (1) CVA (cerebral vascular accident) Is this a current diagnosis for this admission?: Yes (2) Do not resuscitate Is this a current diagnosis for this admission?: Yes (3) Hyperlipidemia Is this a current diagnosis for this admission?: Yes (4) Hypertension Is this a current diagnosis for this admission?: Yes (5) Presence of IVC filter Is this a current diagnosis for this admission?: Yes (6) UTI (urinary tract infection) Is this a current diagnosis for this admission?: Yes - Additional Information Resuscitation Status: Do Not Resuscitate Home Medications: Carvedilol [Coreg 6.25 mg Tablet] 6.25 mg PO BID 02/08/17 Gabapentin [Neurontin 100 mg Capsule] 100 mg PO BID 02/08/17 Lorazepam [Ativan 1 mg Tablet] 1 mg PO QHS 02/08/17 Losartan Potassium [Cozaar 25 mg Tablet] 25 mg PO DAILY 02/08/17 Ranitidine HCl [Zantac 150 mg Tablet] 150 mg PO BID 02/08/17 Cephalexin Monohydrate [Keflex 500 mg Capsule] 500 mg PO Q12 #10 capsule Citalopram Hydrobromide [Celexa 20 mg Tablet] 20 mg PO DAILY #30 tablet Clopidogrel Bisulfate [Plavix 75 mg Tablet] 75 mg PO DAILY #30 tablet 02/12/17 Cyanocobalamin (Vitamin B-12) [Vitamin B-12 1000 mcg Tablet] 1,000 mcg PO DAILY@ 1800 #30 tablet 02/12/17 Rosuvastatin Calcium [Crestor 20 mg Tablet] 20 mg PO QHS #30 tablet 02/12/17 History of Present Illness Admission Date/PCP: 02/08/17 14:34 Patient complains of: lethargy confusion aphasia History of Present Illness: TAMARA STEPHENS is a 81 year old female presented to the emergency department from home where she lives with her daughter as her primary caregiver and carries a 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 Daughter reports returning home from work yesterday at around 1700 to find her sleeping and somewhat lethargic upon arousing. She awoke in took her usual evening medications and then went back to sleep awaking again at 1900 but this time with slurred speech and generalized weakness and agitation. She was able to answer very clearly in yes or no responses to simple questions and she was able to swallow and took some aspirin at that time. The daughter checked on her through the night and she seemed to be sleeping okay. This morning, however, when she arose she was speaking only and mumbles, gerbils and word salad described by the daughter. She also could not move her left arm and leg. On arrival in the emergency department she was found to have an expressive aphasia with left arm and leg weakness. We were asked to admit for further evaluation and management of presumptive stroke. She takes an aspirin daily. 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 She does not smoke or consume alcohol. She has a long-standing history of hypertension with congestive heart failure and hyperlipidemia. She receives her primary care in [place] with a Dr. Rivera and has yet to establish with primary locally. She carries with her a community DO NOT RESUSCITATE. Hospital Course Hospital Course: admitted and monitored overnight on telemetry without significant ectopy or arrhythmia. MRI of brain shows significant old stroke and encephalomalacia with mod to severe vascular ischemic disease but no focal area of new ischemia. Patient remained stable during her hospital stay Medications were reevaluated An MRI of the brain did not show any new stroke She was monitored she did not have any significant arrhythmia An echocardiogram showed a normal left ventricular ejection fraction with mild diastolic dysfunction carotid ultrasound normal He does not want to go home Urine analysis was suggestive of UTI although culture was negative Patient will be discharged on a short course of Keflex Physical Exam Vital Signs: Temp Pulse Resp BP Pulse Ox 98.5 F 94 16 127/55 H 92 02/12/17 07:29 02/12/17 07:48 02/12/17 07:29 02/12/17 07:29 02/12/17 07:29 Intake & Output 02/11/17 02/12/17 02/13/17 00:59 00:59 00:59 Intake Total 576 646 121 Balance 576 760 400 Weight 63 kg 68.8 kg 69.1 kg Results Laboratory Results: 02/11/17 05:34 02/11/17 05:34 02/11/17 18:38 TSH 2.65 Labs- Entire Visit 02/08/17 02/08/17 02/08/17 11:00 11:00 11:00 WBC 11.0 H RBC 4.16 Hgb 10.9 L Hct 34.3 L MCV 82 MCH 26.3 L MCHC 31.9 L RDW 16.0 H Plt Count 359 Seg Neutrophils % 75.8 Lymphocytes % 16.1 Monocytes % 6.3 Eosinophils % 1.2 Basophils % 0.6 Absolute Neutrophils 8.3 H Absolute Lymphocytes 1.8 Absolute Monocytes 0.7 Absolute Eosinophils 0.1 Absolute Basophils 0.1 PT 13.4 INR 0.99 APTT 22.4 L Sodium 142.2 Potassium 4.1 Chloride 107 Carbon Dioxide 23 Anion Gap 12 BUN 15 Creatinine 0.66 Est GFR ( Amer) > 60 Est GFR (Non-Af Amer) > 60 Glucose 93 Hemoglobin A1c % Calcium 9.4 Total Bilirubin 0.7 Direct Bilirubin 0.2 Indirect Bilirubin Not Reportable Neonat Total Bilirubin Not Reportable AST 25 ALT 21 Alkaline Phosphatase 68 Creatine Kinase 67 Troponin I Total Protein 6.5 Albumin 3.9 Triglycerides Cholesterol LDL Cholesterol Direct VLDL Cholesterol HDL Cholesterol Vitamin B12 TSH Urine Color Urine Appearance Urine pH Ur Specific Fleming Urine Protein Urine Glucose (UA) Urine Ketones Urine Blood Urine Nitrite Urine Bilirubin Urine Urobilinogen Ur Leukocyte Esterase Urine WBC (Auto) Urine RBC (Auto) Urine Bacteria (Auto) Urine Mucus (Auto) Urine Ascorbic Acid 02/08/17 02/08/17 02/09/17 11:00 12:30 05:40 WBC RBC Hgb Hct MCV MCH MCHC RDW Plt Count Seg Neutrophils % Lymphocytes % Monocytes % Eosinophils % Basophils % Absolute Neutrophils Absolute Lymphocytes Absolute Monocytes Absolute Eosinophils Absolute Basophils PT INR APTT Sodium Potassium Chloride Carbon Dioxide Anion Gap BUN Creatinine Est GFR ( Amer) Est GFR (Non-Af Amer) Glucose Hemoglobin A1c % Calcium Total Bilirubin Direct Bilirubin Indirect Bilirubin Neonat Total Bilirubin AST ALT Alkaline Phosphatase Creatine Kinase Troponin I < 0.012 Total Protein Albumin Triglycerides 96 Cholesterol 137.81 LDL Cholesterol Direct 56 VLDL Cholesterol 19.0 HDL Cholesterol 58 Vitamin B12 480.0 TSH Urine Color YELLOW Urine Appearance SLIGHTLY-CLOUDY Urine pH 5.0 Ur Specific Fleming 1.017 Urine Protein NEGATIVE Urine Glucose (UA) NEGATIVE Urine Ketones 20 H Urine Blood NEGATIVE Urine Nitrite POSITIVE H Urine Bilirubin NEGATIVE Urine Urobilinogen NEGATIVE Ur Leukocyte Esterase SMALL H Urine WBC (Auto) 14 Urine RBC (Auto) 1 Urine Bacteria (Auto) TRACE Urine Mucus (Auto) RARE Urine Ascorbic Acid NEGATIVE 02/09/17 02/10/17 02/11/17 05:40 05:18 05:34 WBC 8.2 7.9 RBC 4.02 4.20 Hgb 10.7 L 11.1 L Hct 32.9 L 34.8 L MCV 82 83 MCH 26.5 L 26.4 L MCHC 32.4 31.8 L RDW 16.2 H 15.9 H Plt Count 355 357 Seg Neutrophils % 52.5 51.4 Lymphocytes % 29.9 30.3 Monocytes % 12.3 12.0 Eosinophils % 4.3 5.5 Basophils % 1.0 0.8 Absolute Neutrophils 4.3 4.0 Absolute Lymphocytes 2.4 2.4 Absolute Monocytes 1.0 0.9 Absolute Eosinophils 0.4 0.4 Absolute Basophils 0.1 0.1 PT INR APTT Sodium Potassium Chloride Carbon Dioxide Anion Gap BUN Creatinine Est GFR ( Amer) Est GFR (Non-Af Amer) Glucose Hemoglobin A1c % 5.1 Calcium Total Bilirubin Direct Bilirubin Indirect Bilirubin Neonat Total Bilirubin AST ALT Alkaline Phosphatase Creatine Kinase Troponin I Total Protein Albumin Triglycerides Cholesterol LDL Cholesterol Direct VLDL Cholesterol HDL Cholesterol Vitamin B12 TSH Urine Color Urine Appearance Urine pH Ur Specific Fleming Urine Protein Urine Glucose (UA) Urine Ketones Urine Blood Urine Nitrite Urine Bilirubin Urine Urobilinogen Ur Leukocyte Esterase Urine WBC (Auto) Urine RBC (Auto) Urine Bacteria (Auto) Urine Mucus (Auto) Urine Ascorbic Acid 02/11/17 02/11/17 05:34 18:38 WBC RBC Hgb Hct MCV MCH MCHC RDW Plt Count Seg Neutrophils % Lymphocytes % Monocytes % Eosinophils % Basophils % Absolute Neutrophils Absolute Lymphocytes Absolute Monocytes Absolute Eosinophils Absolute Basophils PT INR APTT Sodium 142.6 Potassium 4.3 Chloride 105 Carbon Dioxide 29 Anion Gap 9 BUN 8 Creatinine 0.66 Est GFR ( Amer) > 60 Est GFR (Non-Af Amer) > 60 Glucose 89 Hemoglobin A1c % Calcium 9.7 Total Bilirubin 0.7 Direct Bilirubin 0.2 Indirect Bilirubin Not Reportable Neonat Total Bilirubin Not Reportable AST 34 ALT 23 Alkaline Phosphatase 66 Creatine Kinase Troponin I Total Protein 6.6 Albumin 3.9 Triglycerides Cholesterol LDL Cholesterol Direct VLDL Cholesterol HDL Cholesterol Vitamin B12 TSH 2.65 Urine Color Urine Appearance Urine pH Ur Specific Fleming Urine Protein Urine Glucose (UA) Urine Ketones Urine Blood Urine Nitrite Urine Bilirubin Urine Urobilinogen Ur Leukocyte Esterase Urine WBC (Auto) Urine RBC (Auto) Urine Bacteria (Auto) Urine Mucus (Auto) Urine Ascorbic Acid Impressions: Head MRI 02/08/17 00:00 IMPRESSION: ATROPHY, ENCEPHALOMALACIA, AND CHRONIC MICRO-VASCULAR ISCHEMIC CHANGES DETAILED ABOVE. OTHERWISE NORMAL MRI OF THE BRAIN WITHOUT INTRAVENOUS GADOLINIUM CONTRAST. Chest X-Ray 02/08/17 10:23 IMPRESSION: NO ACUTE RADIOGRAPHIC FINDING IN THE CHEST. Head CT 02/08/17 10:23 IMPRESSION: CHRONIC CHANGES OF ATROPHY AND MICROVASCULAR ISCHEMIA. NO ACUTE PROCESS. Carotid Doppler Study 02/10/17 00:00 IMPRESSION: NO HEMODYNAMICALLY SIGNIFICANT STENOSIS. Transfer Plan - Disposition Transfer Plan: To SNF facility for short-term rehabilitation - Time Spent with Patient Time spent with patient: Greater than 30 Minutes
[2017-02-12 11:57] VITALS: BP 131/49
== END 2017-02-12 13:33 | DRG 65 ==
LOC: ER 10:21 → UNDOADMIN 14:02 → EH 14:02 → 3W 21:41
DX: I63.9 Cerebral infarction, unspecified (principal); G81.91 Hemiplegia, unspecified affecting right dominant side; N30.00 Acute cystitis without hematuria; R47.01 Aphasia; I11.0 Hypertensive heart disease with heart failure; I50.9 Heart failure, unspecified; Z66 Do not resuscitate; K21.9 Gastro-esophageal reflux disease without esophagitis; E78.5 Hyperlipidemia, unspecified; Z86.711 Personal history of pulmonary embolism; Z82.49 Family history of ischemic heart disease and other diseases of the circulatory system; Z88.6 Allergy status to analgesic agent; I69.398 Other sequelae of cerebral infarction; Z86.718 Personal history of other venous thrombosis and embolism; Z95.828 Presence of other vascular implants and grafts
CPT/HCPCS: 36415; 70450; 70551; 71010; 80053; 80061; 81001; 82550; 82607; 83036; 84443; 84484; 85025; 85610; 85730; 93005; 93010; 93306; 93880; 99291; G8978-GP; G8979-GP; G8987-GO; G8988-GO; G9162-GN; G9163-GN; J0696; J1650; J3490; S0028

== ENCOUNTER 2017-08-26 12:30 | Emergency (ER) | payer MEDICARE ==
[2017-08-26 12:39] VITALS: BP 132/96
--- NOTE | 2017-08-26 12:53 | ER Document Report ---
ED General - General Chief Complaint: Fall Stated Complaint: DIZZINESS Time Seen by Provider: 08/26/17 12:47 Mode of Arrival: Medic Information source: Patient Notes: 81-year-old female presents with complaints of a fall. Patient notes it was a completely mechanical fall that she was ambulating and she tripped. Patient denies any syncope denies any dizziness denies any chest pain shortness of breath injuries or any other specific concerns. Patient notes that EMS was concerned that she may have had a urinary tract infection Patient completely asymptomatic at this time TRAVEL OUTSIDE OF THE [place] IN LAST 30 DAYS: No - HPI Onset: Just prior to arrival Onset/Duration: Sudden Quality of pain: No pain - Related Data Allergies/Adverse Reactions: codeine Allergy (Verified 02/08/17 14:45) Past Medical History - Social History Smoking Status: Never Smoker Cigarette use (# per day): No Chew tobacco use (# tins/day): No Smoking Education Provided: No Family History: Reviewed & Not Pertinent, CAD - Past Medical History Cardiac Medical History: Reports: Hx Congestive Heart Failure, Hx Hypercholesterolemia, Hx Hypertension, Hx Pulmonary Embolism Denies: Hx Atrial Fibrillation Endocrine Medical History: Denies: Hx Diabetes Mellitus Type 2 GI Medical History: Reports: Hx Diverticulitis Past Surgical History: Reports: Hx Vascular Surgery Review of Systems - Review of Systems Notes: REVIEW OF SYSTEMS: CONSTITUTIONAL : Denies fever, chills, or sweats. Denies recent illness. EENT: Denies eye, ear, throat, or mouth pain or symptoms. Denies nasal or sinus congestion or discharge. Denies throat, tongue, or mouth swelling or difficulty swallowing. CARDIOVASCULAR: Denies chest pain. Denies palpitations or racing or irregular heart beat. Denies ankle edema. RESPIRATORY: Denies cough, cold, or chest congestion. Denies shortness of breath, difficulty breathing, or wheezing. GASTROINTESTINAL: Denies abdominal pain or distention. Denies nausea, vomiting , or diarrhea. Denies blood in vomitus, stools, or per rectum. Denies black, tarry stools. Denies constipation. GENITOURINARY: Denies difficulty urinating, painful urination, burning, frequency, blood in urine, or discharge. FEMALE GENITOURINARY: Denies vaginal bleeding, heavy or abnormal periods, irregular periods. Denies vaginal discharge or odor. MUSCULOSKELETAL: Denies back or neck pain or stiffness. Denies joint pain or swelling. SKIN: Denies rash, lesions or sores. HEMATOLOGIC : Denies easy bruising or bleeding. LYMPHATIC: Denies swollen, enlarged glands. NEUROLOGICAL: Denies confusion or altered mental status. Denies passing out or loss of consciousness. Denies dizziness or lightheadedness. Denies headache. Denies weakness or paralysis or loss of use of either side. Denies problems with gait or speech. Denies sensory loss, numbness, or tingling. Denies seizures. PSYCHIATRIC: Denies anxiety or stress. Denies depression, suicidal ideation, or homicidal ideation. ALL OTHER SYSTEMS REVIEWED AND NEGATIVE. PHYSICAL EXAMINATION: GENERAL: Well-appearing, well-nourished and in no acute distress. HEAD: Atraumatic, normocephalic. EYES: Pupils equal round and reactive to light, extraocular movements intact, conjunctiva are normal. ENT: Nares patent, oropharynx clear without exudates. Moist mucous membranes. NECK: Normal range of motion, supple without lymphadenopathy LUNGS: Breath sounds clear to auscultation bilaterally and equal. No wheezes rales or rhonchi. HEART: Regular rate and rhythm without murmurs ABDOMEN: Soft, nontender, nondistended abdomen. No guarding, no rebound. No masses appreciated. Female : deferred Musculoskeletal: Normal range of motion, no pitting or edema. No cyanosis. NEUROLOGICAL: Cranial nerves grossly intact. Normal speech, normal gait. Normal sensory, motor exams PSYCH: Normal mood, normal affect. SKIN: Warm, Dry, normal turgor, no rashes or lesions noted. Dictation was performed using [employer] voice recognition software Physical Exam - Vital signs Vitals: Temp Pulse Resp BP Pulse Ox 97.5 F 144 H 18 132/96 H 87 L 08/26/17 12:37 08/26/17 12:37 08/26/17 12:37 08/26/17 12:37 08/26/17 12:37 Course - Re-evaluation Re-evalutation: 08/26/17 12:52 Patient denies any other concerns, wishes to be discharged home, given that EMS believes she may have a urinary tract infection I will get a urinalysis to evaluate further 08/26/17 13:36 Patient's initial vital signs are noted to be incorrect 08/26/17 14:19 Patient is noted to have urinary tract infections otherwise well-appearing no distress I will discharge home at this time After performing a Medical Screening Examination, I estimate there is LOW risk for ACUTE CORONARY SYNDROME, RESPIRATORY FAILURE, SEPSIS OR MENINGITIS, thus I consider the discharge disposition reasonable. I have reevaluated this patient multiple times and no significant life threatening changes are noted. The patient and I have discussed the diagnosis and risks, and we agree with discharging home with close follow-up. We also discussed returning to the Emergency Department immediately if new or worsening symptoms occur. We have discussed the symptoms which are most concerning (e.g., changing or worsening pain, trouble swallowing or breathing, neck stiffness, fever) that necessitate immediate return. - Vital Signs Vital signs: Temp Pulse Resp BP Pulse Ox 97.5 F 84 18 132/96 H 100 08/26/17 12:37 08/26/17 12:41 08/26/17 12:37 08/26/17 12:37 08/26/17 12:48 - Laboratory Laboratory results interpreted by me: 08/26/17 13:15 Urine Blood SMALL H Urine Nitrite POSITIVE H Ur Leukocyte Esterase LARGE H Discharge - Discharge Clinical Impression: UTI (urinary tract infection) Qualifiers: Urinary tract infection type: acute cystitis Hematuria presence: without hematuria Qualified Code(s): N30.00 - Acute cystitis without hematuria Fall Qualifiers: Encounter type: initial encounter Qualified Code(s): W19.XXXA - Unspecified fall, initial encounter Condition: Stable Disposition: HOME, SELF-CARE Instructions: Urinary Tract Infection ([facility]) Additional Instructions: Follow up with your physician tomorrow for further care or return to the ED IMMEDIATELY if symptoms worsen or new concerns occur. If you cannot afford to follow up with your primary care physician a list of low cost clinics have been provided at the end of your discharge papers as well. Prescriptions: Cephalexin Monohydrate [Keflex 500 mg Capsule] 500 mg PO BID 7 Days capsule
[2017-08-26 13:50] LABS: APPEARANCE,URINE CLEAR; BILIRUBIN,URINE NEGATIVE (NEGATIVE); GLUCOSE, URINE NEGATIVE (NEGATIVE); KETONES,URINE NEGATIVE (NEGATIVE); LEUKOCYTE ESTERASE,URINE LARGE (NEGATIVE); NITRITE,URINE POSITIVE (NEGATIVE); PROTEIN,URINE NEGATIVE (NEGATIVE); URINE SPECIFIC GRAVITY 1.004; UROBILINOGEN,URINE NEGATIVE mg/dL (<2.0)
[2017-08-26] MEDS ORDERED: CIPROFLOXACIN HCL 500 MG TABLET PO ONE (14:01)
== END 2017-08-26 16:27 | disposition home or self-care (01) ==
LOC: ER 12:30
DX: N30.00 Acute cystitis without hematuria (principal); R42 Dizziness and giddiness; W19.XXXA Unspecified fall, initial encounter
CPT/HCPCS: 99285; 81001; A9270

== ENCOUNTER 2017-10-01 07:35 | Day surgery (SDC) | payer MEDICARE ==
[2017-10-01] MEDS ORDERED: NALOXONE HCL INJ/PF 0.4 MG/1 ML SDV ONE (07:45)
[2017-10-01] MEDS ORDERED: MIDAZOLAM 2 MG/2 ML INJ ONE (07:45)
[2017-10-01] MEDS ORDERED: ONDANSETRON HCL INJ/PF 4 MG/2 ML SDV ONE (07:45)
[2017-10-01] MEDS ORDERED: DIPHENHYDRAMINE HCL 50 MG/ML VIAL ONE (07:45)
[2017-10-01] MEDS ORDERED: FLUMAZENIL INJ 0.5 MG/5 ML VIAL ONE (07:46)
[2017-10-01] MEDS ORDERED: GLUCAGON,HUMAN RECOMB 1 MG INJ ONE (07:46)
[2017-10-01] MEDS ORDERED: EPINEPHRINE INJ 1 MG/10 ML DISP.SYRIN ONE (07:46)
[2017-10-01] MEDS: FENTANYL CITRATE INJ/PF 100 MCG/2 ML AMPUL ONE ×2 (08:12→08:14)
[2017-10-01] MEDS: MIDAZOLAM 2 MG/2 ML INJ ONE ×2 (08:16→08:18)
--- NOTE | 2017-10-01 08:29 | Operative Report ---
Operative Report DATE OF SURGERY: 10/01/17 Operative Report: The risks benefits and alternatives of the procedure explained to the patient in detail and informed consent is obtained.A GIF Olympus video scope was inserted into the patient's mouth and hypopharynx, the esophagus is identified intubated and insufflated, the scope was then advanced through the esophagus stomach and duodenum, retroflexion maneuver is done, the esophagus stomach and first and second portions of the duodenum examined PREOPERATIVE DIAGNOSIS: Dysphagia POSTOPERATIVE DIAGNOSIS: Schatzki's ring which is broken. Hiatal hernia. Gastritis status post biopsy rule out Helicobacter pylori OPERATION: EGD with biopsy SURGEON: GILBERT ALVAREZ ANESTHESIA: Moderate Sedation - 4 mg of Versed, 25 mcg of fentanyl. Conscious sedation monitoring time 30 minutes. TISSUE REMOVED OR ALTERED: Gastric mucosal specimen obtained. COMPLICATIONS: None. ESTIMATED BLOOD LOSS: None. INTRAOPERATIVE FINDINGS: As noted above. PROCEDURE: Patient tolerated procedure well. No immediate postprocedure complications are noted. Patient discharge in good condition. Discharge date 10/01/2017. Discharge diet: Regular. Discharge activity: Regular. 2-3 week follow-up to discuss findings. Patient is instructed to call the office or proceed to the emergency room should it be any further problems or questions. We will await pathology.
[2017-10-01 09:27] VITALS: BP 112/49
== END 2017-10-01 09:40 | disposition home or self-care (01) ==
LOC: END 07:35
PROVIDERS: ATTEND Internal Medicine Gastroenterology
PROC: 0DB68ZX Excision of Stomach, Via Natural or Artificial Opening Endoscopic, Diagnostic (ICD-10-PCS; principal; 2017-10-01 08:00)
DX: K22.2 Esophageal obstruction (principal); K44.9 Diaphragmatic hernia without obstruction or gangrene; K29.50 Unspecified chronic gastritis without bleeding; K21.9 Gastro-esophageal reflux disease without esophagitis; M19.90 Unspecified osteoarthritis, unspecified site; I50.9 Heart failure, unspecified; Z86.73 Personal history of transient ischemic attack (TIA), and cerebral infarction without residual deficits; Z86.711 Personal history of pulmonary embolism; Z79.899 Other long term (current) drug therapy; Z79.82 Long term (current) use of aspirin; Z88.5 Allergy status to narcotic agent
CPT/HCPCS: 43239; 88342 ×2; 88305 ×2; J2250; J3010; J0171; J1200; J1610; J2310; J2405; J3490

== ENCOUNTER 2018-12-15 11:42 | Inpatient (IN) | payer MEDICARE ==
--- NOTE | 2018-12-15 12:06 | RADIOLOGY REPORT (SQ) ---
EXAM DESCRIPTION: CT HEAD WITHOUT COMPLETED DATE/TIME: 12/15/2018 11:50 am REASON FOR STUDY: s/s stroke COMPARISON: 02/08/2017 TECHNIQUE: Axial images acquired through the brain without intravenous contrast. Images reviewed wi th bone, brain and subdural windows. Additional sagittal and coronal reconstructions were generated. Images stored on PACS. All CT scanners at this facility use dose modulation, iterative reconstruction, and/or weight based d osing when appropriate to reduce radiation dose to as low as reasonably achievable (ALARA). [facility]: Dose Right [facility]: CareDose [facility]: Dose Right [facility]: Teradose 4D [facility]: Smart [email or web address] RADIATION DOSE: CT Rad equipment meets quality standard of care and radiation dose reduction techniq ues were employed. CTDIvol: 53.2 mGy. DLP: 1044 mGy-cm.mGy. LIMITATIONS: None. FINDINGS: VENTRICLES: Prominent compatible with parenchymal volume loss, stable. CEREBRUM: No masses. No hemorrhage. No midline shift. Scattered areas of low density in the white matter most likely due to chronic micro-vascular ischemic change. Additional more focal areas of hyp oattenuation within the bilateral basal ganglia compatible with prior lacunar infarcts. No definite evidence of acute large vascular territory infarct. Unchanged hypoattenuation within the right jackson edian occipital lobe. CEREBELLUM: No masses. No hemorrhage. No alteration of density. No evidence for acute infarction. EXTRAAXIAL SPACES: Age-related involutional change. No fluid collections. No masses. ORBITS AND GLOBE: No intra- or extraconal masses. Normal contour of globe without masses. Prior [place] ateral cataract surgery. CALVARIUM: No fracture. PARANASAL SINUSES: No fluid or mucosal thickening. SOFT TISSUES: No mass or hematoma. OTHER: No other significant finding. IMPRESSION: Stable nonspecific white matter changes and prior lacunar infarcts without evidence of a cute large vascular territory infarct. MRI would be more sensitive for evaluation of acute on chroni c event. EVIDENCE OF ACUTE STROKE: NO. COMMENT: Pertinent positive or negative findings of the imaging study reported as a CRITICAL EXAM t eileen Monroy at11:58 on 12/15/2018. Category of Critical Exam: Code stroke. TECHNICAL DOCUMENTATION: JOB ID: [id number] Quality ID # [id number]: Final reports with documentation of one or more dose reduction techniques (e.g., Au tomated exposure control, adjustment of the mA and/or kV according to patient size, use of iterative reconstruction technique) 2010 [employer] [employer]- All Rights Reserved Reading location - IP/workstation name: [email or web address]
--- NOTE | 2018-12-15 12:07 | RADIOLOGY REPORT (SQ) ---
EXAM DESCRIPTION: CHEST SINGLE VIEW COMPLETED DATE/TIME: 12/15/2018 11:52 am REASON FOR STUDY: s/s stroke COMPARISON: 02/08/2017 EXAM PARAMETERS: NUMBER OF VIEWS: One view. TECHNIQUE: Single frontal radiographic view of the chest acquired. RADIATION DOSE: NA LIMITATIONS: None. FINDINGS: LUNGS AND PLEURA: No opacities, masses or pneumothorax. No pleural effusion. MEDIASTINUM AND HILAR STRUCTURES: No masses. Contour normal. HEART AND VASCULAR STRUCTURES: Heart normal in size. Normal vasculature. BONES: No acute findings. HARDWARE: None in the chest. OTHER: No other significant finding. IMPRESSION: NO ACUTE RADIOGRAPHIC FINDING IN THE CHEST. TECHNICAL DOCUMENTATION: JOB ID: [id number] [employer]- All Rights Reserved Reading location - IP/workstation name: [email or web address]
[2018-12-15] MEDS ORDERED: ASPIRIN 81 MG TABLET, CHEWABLE PO ONE (12:27)
--- NOTE | 2018-12-15 12:27 | ER Document Report ---
ED Neuro Symptoms/Deficit - General Stated Complaint: POSSIBLE STROKE Time Seen by Provider: 12/15/18 12:21 Primary Care Provider: KAREN BOSWELL MD [Primary Care Provider] - Follow up as needed Notes: 83-year-old female with a history of multiple strokes presents to the emergency department after slurred speech and left facial droop. The patient was last known normal at 10 AM. Patient began having some numbness and tingling in her left face and began having trouble talking. She denied any extremity numbness tingling or weakness. Denies chest pain denies shortness of breath. Denies headache or blurred vision. The patient was brought in via EMS for further evaluation and treatment the patient had began improving for emergency services. Upon arrival here the facial droop was nearly gone she was still having some trouble talking. The patient has been well as of late no fever no chills no sore throat no chest pain or shortness of breath no falls no head injury. TRAVEL OUTSIDE OF THE [place] IN LAST 30 DAYS: No - Related Data Allergies/Adverse Reactions: codeine Allergy (Mild, Verified 10/01/17 08:11) GI upset Past Medical History - Social History Smoking Status: Unknown if Ever Smoked Family History: Reviewed & Not Pertinent, CAD - Past Medical History Cardiac Medical History: Reports: Hx Congestive Heart Failure, Hx Coronary Artery Disease, Hx Hypercholesterolemia, Hx Hypertension, Hx Pulmonary Embolism Denies: Hx Atrial Fibrillation, Hx Heart Attack Pulmonary Medical History: Denies: Hx Asthma, Hx Bronchitis, Hx COPD, Hx Pneumonia Neurological Medical History: Reports: Hx Cerebrovascular Accident - uses walker . Denies: Hx Seizures Endocrine Medical History: Denies: Hx Diabetes Mellitus Type 2 Renal/ Medical History: Denies: Hx Peritoneal Dialysis GI Medical History: Reports: Hx Diverticulitis Musculoskeletal Medical History: Reports Hx Arthritis Past Surgical History: Reports: Hx Vascular Surgery - Immunizations Hx Diphtheria, Pertussis, Tetanus Vaccination: Yes Review of Systems - Review of Systems Constitutional: denies: Chills, Diaphoresis, Fever EENT: denies: Blurred vision, Double vision Cardiovascular: denies: Chest pain, Dyspnea Respiratory: denies: Hemoptysis, Short of breath, Wheezing Gastrointestinal: denies: Nausea, Vomiting Neurological/Psychological: Sensory change, Speech impairment. denies: Headaches -: Yes All other systems reviewed and negative Physical Exam - Vital signs Vitals: Pulse Ox 100 12/15/18 12:20 - Notes Notes: GENERAL_APPEARANCE: well_nourished, alert, cooperative VITALS: reviewed, see vital signs table. HEAD: no_swelling\\tenderness on the head. EYES: PERRL, EOMI, conjunctiva_clear. NOSE: no_nasal_discharge. MOUTH: (-)decreased moisture. THROAT: no_throat_inflammation, no_airway_obstruction. no_lymphadenopathy NECK: supple, no_neck_tenderness, (-)thyromegaly. BACK: no_back_tenderness. CHEST_WALL: no_chest_tenderness. LUNGS: no_wheezing, no_rales, no_rhonchi, (-)accessory muscle use, good air exchange bilateral. HEART: normal_rate, normal_rhythm, normal_S1, normal_S2, (-)S3, (-)S4, n o_murmur, no_rub. ABDOMEN: normal_BS, soft, no_abd_tenderness, (-)guarding, (-)rebound, no_organomegaly, no_abd_masses. EXTREMITIES: good pulses in all_extremities, no_swelling\\tenderness in the ex tremities, no_edema. SKIN: warm, dry, good_color, no_rash. MENTAL_STATUS: speech_clear, oriented_X_3, normal_affect, responds_appropriately to questions. NEURO: Neg Motor or Sensory Deficits on exam, CN 2-12 intact except very mild left facial droop and downturning nasolabial fold., DTR 2+ symmetric x 4, No cerbellar signs -GCS 15, see NIH stroke scale later in this document Course - Re-evaluation Re-evalutation: 12/15/18 12:25 The patient arrives with strokelike symptoms. The patient is rapidly resolving according to EMS. Patient really cannot get much of any words out initially. Now she is able to talk. She still is having some dysarthria. Mild slurring her facial droop is improving. The patient's NIH stroke scale at the time of my exam was 3. The patient has history of prior strokes before. She is rapidly improving symptoms. CT scan initially was normal we will give her an aspirin. Patient is rapidly improving therefore she is not a candidate for thrombolytics the risk is higher than the benefit. Patient has a low stroke score and a rapidly improving symptoms. Patient has had many strokes in the past. Give the patient an aspirin. Patient has a history of DVTs in the past but was not a good candidate for anticoagulation and a [place] filter was placed. 12/15/18 14:06 Spoke with the hospitalist service for hospitalization. - Vital Signs Vital signs: Temp Pulse Resp BP Pulse Ox 100 12/15/18 12:20 - Laboratory Result Diagrams: 12/15/18 12:11 12/15/18 12:11 - Diagnostic Test Radiology reviewed: Reports reviewed Radiology results interpreted by me: 12/15/18 14:07 Chest X-Ray 12/15/18 11:42 IMPRESSION: NO ACUTE RADIOGRAPHIC FINDING IN THE CHEST. Head CT 12/15/18 11:42 IMPRESSION: Stable nonspecific white matter changes and prior lacunar infarcts without evidence of acute large vascular territory infarct. MRI would be more sensitive for evaluation of acute on chronic event. EVIDENCE OF ACUTE STROKE: NO. - EKG Interpretation by Me EKG shows normal: Sinus rhythm Rate: Normal - 72 Rhythm: NSR When compared to previous EKG there are: No significant change ED Alteplase Inc/Exc Criteria - Inclusion Criteria: 1: Patient presented to ED within 3 hours of acute ischemic stroke symptom onset? 2: Did baseline CT exclude intracranial hemorrhage and/or other risk factors? 3: Is the age of the patient 18 years of age or greater? : If any of the above questions are answered "NO" then stop, patient is not a candidate for Alteplase, : If all of the above questions are answered "YES" then continue with Exclusion Criteria. - Exclusion Criteria: 1: Is there evidence of intracranial hemorrhage on baseline CT? 2: Is there suspicion of subarachnoid hemorrhage (even if CT negative)? 3: Is there a history of serious head trauma, recent previous stroke or [place] within 3 months? 4: Does the patient have a clinical presentation consistent with [place] or post-[place] pericarditis? 5: Is there history of intracranial hemorrhage? 6: On repeated measurement is Systolic BP greater than 185mmHg or Diastolic BP greater that 110 mmHg and is aggressive treatment needed to reduce blood pressure to these limits (e.g. constant infusion of an anti-hypertensive)? 7: Did the patient awake with stroke symptoms? 8: Has the patient had a lumbar puncture or an arterial puncture at a non- compressile site within 7 days? 9: With in the last 14 days did the patient have surgery or major trauma? 10: Is the patient or less than 2 weeks? 11: Was there any active bleeding or acute trauma? 12: Does the patient have intracranial neoplasm, arteriovenous malformation or aneurysm? 13: Does the patient have abnormal glucose (less than 50 or greater than 400mg/dl)? Record glucose in Comment. 14: Patient has rapidly improving symptoms at the time Alteplase is to be Administered. -: Yes 15: Does the patient have any risks for bleeding, including but not limited to: a.: Current use of Coumadin with PT greater than 15 seconds or INR greater than 1.7. b.: Current use of Pradaxa (Dabigatran). c.: Heparin administereed within the past 48 hours and PTT elevated. d.: Platelet count less than 100,000/mm. e.: Major surgery or serious trauma within 14 days. f.: Gastrointestinal or gynecological urinary bleeding within 14 days. g.: Myocardial Infarction ([place]) within 3 months. : If the answer to any of the above questions is "YES" then stop, the patient is not a candidate for Alteplase. : If the answer to all of the above questions is "NO" then the patient may be eligible for the Administration of Alteplase. : If the patient is noted to have seizure activity at onset of Stroke symptoms; Consult Neurologist for further evaluation. - The patient is: -: Included and is eligible to receive Alteplase. *Initiate bed placement at [facility] level of care* Reviewed risks & benefits of thrombolytic therapy: I have reviewed the risks and benefits of thrombolytic therapy with the patient and/or his/her family. -: Excluded and not eligible to receive Alteplase for the above exclusions. -: Excluded and not eligible to receive Alteplase for other reasons (specify in comments): - Diagnosis of TIA: -: Patient presented with transient symptoms that are now resolved and no other neurologic findings are currently present. List symptoms in comments. -: Patient is NOT a candidate for tPA. -: ____(put name in comment) has been consulted for admission and continued evaluation of risk factor assessment. ED NIH Stroke Scale - NIH Stroke Scale *: 1. NIH scale should be completed with appropriate accompanying assessment tools. *: 2. The NIH should reflect what the patient is capable of doing and should not be coached by the clinician. 1a. Level of Consciousness: 0=Alert;keenly responsive -: 1=Drowsy -: 2=Obtunded -: 3=Coma/unresponsive or reflex to noxious stimuli. 1a. Responses: 0 1b. Orientation Questions: a. What month is it? -: b. How old are you? -: 0=Answers both questions correctly. -: 1=Answers one question correctly or patient is intubated or has orotracheal trauma. -: 2=Answers neither question correctly. 1b. Responses: 0 1c. Response to commands: a. Open and close eyes? -: b. [employer]er and release hand? -: Credit is given despite weakness. Demonstration of task is permitted. Substitute command if hands cannot be used. -: 0=Performs both tasks correctly -: 1=Performs one task correctly -: 2=Performs neither task correctly 1c. Responses: 0 2. Gaze: Establish eye contact and instruct patient to "Follow my finger" -: 0=Normal -: 1=Partial gaze palsy. Gaze is abnormal in one or both eyes, but where forced deviation or total gaze paresis is not present. -: 2=Forced deviation or total gaze paresis. 2. Responses: 0 3. Visual Frausto: Sees fingers in all four quadrants. -: 0=No visual loss. -: 1=Partial hemianopsia. -: 2=Complete hemianopsia. -: 3=Bilateral hemianopsia (including Cortical blindness) 3. Responses: 0 4. Facial Movement: Instruct patient to: -: a. Show me your teeth -: b. Raise your eyebrows -: c. Close your eyes -: d. Smile -: 0=Normal symmetrical movement -: 1=Minor paralysis (flattened nasolabial fold, asymmetry on smiling). -: 2=Partial paralysis (total or near total paralysis of lower face). -: 3=Complete paralysis of upper and lower face 4. Responses: 1 5. Motor functions (left arm): Alternate sides and extend each arm with palms down (90 degrees if sitting or 45 degrees for supine). -: 0=No drift;limb holds for full 10 seconds. -: 1=Drift; limb holds but drifts down before full 10 seconds, but does not hit bed. -: 2=Some effort against gravity; limb cannot get to or maintain position. -: 3=No effort against gravity; limb falls. -: 4=No movement. -: UN=Amputation, joint fusion, explain in comments. 5. Responses (left arm): 0 5. Motor Functions (right arm): Alternate sides and extend each arm with palms down (90 degrees if sitting or 45 degrees for supine). -: 0=No drift;limb holds for full 10 seconds. -: 1=Drift; limb holds but drifts down before full 10 seconds, but does not hit bed. -: 2=Some effort against gravity; limb cannot get to or maintain position. -: 3=No effort against gravity; limb falls. -: 4=No movement. -: UN=Amputation, joint fusion, explain in comments. 5. Responses (right arm): 0 6. Motor Functions (left leg): With patient lying supine, alternate sides and extend each leg (30 degrees always while supine). -: 0=No drift, leg holds position for full 5 seconds -: 1=Drift; leg falls before full 5 seconds but does not hit bed. -: 2=Some effort against gravity, leg falls to bed but some effort against gravity. -: 3=No effort against gravity, leg falls to bed immediately. -: 4=No movement. -: UN=Amputation, joint fusion; explain in comments. 6. Responses (left leg): 0 6. Motor Functions (right leg): With patient lying supine, alternate sides and extend each leg (30 degrees always while supine). -: 0=No drift, leg holds position for full 5 seconds -: 1=Drift; leg falls before full 5 seconds but does not hit bed. -: 2=Some effort against gravity, leg falls to bed but some effort against gravity. -: 3=No effort against gravity, leg falls to bed immediately. -: 4=No movement. -: UN=Amputation, joint fusion; explain in comments. 6. Responses (right leg): 0 7. Limb Ataxia: With eyes open instruct patient to: -: a. "Touch your finger to your nose". -: b. "Touch your heel to your scott" -: 0=Absent -: 1=Present in one limb. -: 2=Present in two limbs. -: UN=Amputation or joint fusion; explain in comments. 7. Responses: 0 8. Sensory: Test sensation using pinprick or noxious stimuli. Test as many body parts as possible. -: 0=Normal;no sensory loss -: 1=Mile to moderate sensory loss (patient feels pin prick but is less sharp on affected side). -: 2=Severe or total sensory loss. 8. Responses: 0 9. Best Language: Instruct patient to: -: a. "Describe what you see in this picture." -: b. "Name the items in this picture." -: c. "Read these sentences." -: 0=No aphasia, normal -: 1=Mild to moderate aphasia. -: 2=Severe aphasia -: 3=Mute, global aphasia, no usable speech or auditory comprehension. 9. Responses: 1 10. Articulation, Dysarthia: Instruct patient to: -: "Read these words" or "Repeat these words" -: 0=Normal -: 1=Mild to moderate; patient may slur some words but can be understood without difficulty. -: 2=Severe; patients speech so slurred as to be unintelligible in the absence of dysphasia. -: UN=Intubated or other physical barrier, explain in comments. 10. Responses: 1 11. Extinction or inattention: 0=No abnormality -: 1= Visual, tactile, auditory, spatial, or personal inattention or extinction to bilateral simulation in one or the sensory modalities. -: 2=Profound darron-inattention or darron-inattention to more than one modality; does not recognize own hand. 11. Responses: 0 Total Score: 3 Discharge - Discharge Clinical Impression: CVA (cerebral vascular accident) Condition: Good Disposition: ADMITTED INPATIENT Admitting Provider: Hospitalist Unit Admitted: IMCU Referrals: KAREN BOSWELL MD [Primary Care Provider] - Follow up as needed
[2018-12-15] MEDS ORDERED: ONDANSETRON HCL INJ/PF 4 MG/2 ML SDV ONE (12:34)
[2018-12-15 12:35] LABS: INTERNATIONAL RATION (INR) 1.09; PARTIAL THROMBOPLASTIN TIME 23.8 SEC (23.5-35.8); PROTHROMBIN TIME 14.7 SEC (11.4-15.4)
[2018-12-15] MEDS ORDERED: ONDANSETRON HCL INJ/PF 4 MG/2 ML SDV IV ONE (12:37)
[2018-12-15 12:46] LABS: ABSOLUTE BASOPHILS # (AUTO) 0.1 10^3/uL (0.0-0.2); ABSOLUTE EOSINOPHILS # (AUTO) 0.1 10^3/uL (0.0-0.6); ABSOLUTE LYMPHOCYTES (AUTO) 1.3 10^3/uL (0.5-4.7); ABSOLUTE MONOCYTES (AUTO) 0.7 10^3/uL (0.1-1.4); ABSOLUTE NEUT (AUTO) 4.7 10^3/uL (1.7-8.2); BASOPHILS % (AUTO) 1.3 % (0-2); HEMATOCRIT 26.7 % (36.0-47.0); LYMPHOCYTES % (AUTO) 19.1 % (13-45); MEAN CORPUSCULAR HEMOGLOBIN 19.9 pg (27.0-33.4); MEAN CORPUSCULAR HGB CONC 29.7 g/dL (32.0-36.0); MEAN CORPUSCULAR VOLUME 67 fl (80-97); MONOCYTES % (AUTO) 9.6 % (3-13); PLATELET COUNT 362 10^3/uL (150-450); RED CELL DISTRIBUTION WIDTH 17.4 % (11.5-14.0); TOTAL CELLS COUNTED % (AUTO) 100 %; WHITE BLOOD COUNT 6.9 10^3/uL (4.0-10.5)
[2018-12-15 12:51] LABS: ALANINE AMINOTRANSFERASE 16 U/L (9-52); ALKALINE PHOSPHATASE 78 U/L (38-126); ANION GAP 10 (5-19); ASPARTATE AMINO TRANSFERASE 33 U/L (14-36); BILIRUBIN,DIRECT 0.4 mg/dL (0.0-0.4); BILIRUBIN,TOTAL 0.9 mg/dL (0.2-1.3); BLOOD UREA NITROGEN 13 mg/dL (7-20); CALCIUM 9.1 mg/dL (8.4-10.2); CARBON DIOXIDE 23 mmol/L (22-30); CHLORIDE 104 mmol/L (98-107); CREATINE KINASE 96 U/L (30-135); GLUCOSE 140 mg/dL (75-110); POTASSIUM 5.6 mmol/L (3.6-5.0); SODIUM 137.4 mmol/L (137-145); TOTAL PROTEIN 6.6 g/dL (6.3-8.2)
[2018-12-15 13:04] LABS: CREATINE KINASE MB 0.99 ng/mL (<4.55)
[2018-12-15 13:06] LABS: TROPONIN I < 0.012 ng/mL
[2018-12-15 13:16] LABS: ANISOCYTOSIS 2+; HYPOCHROMASIA 2+; OVALOCYTES 2+; PLATELET COMMENT ADEQUATE; POIKILOCYTOSIS 2+; POLYCHROMASIA 1+; ROULEAUX SLIGHT; SCHISTOCYTES SLIGHT; TEAR DROP CELLS SLIGHT
[2018-12-15] MEDS ORDERED: ACETAMINOPHEN 325 MG TABLET PO PRN (15:27)
[2018-12-15] MEDS ORDERED: ONDANSETRON HCL INJ/PF 4 MG/2 ML SDV IV PRN (15:27)
[2018-12-15] MEDS ORDERED: DOCUSATE SODIUM 100 MG CAPSULE PO PRN (15:27)
[2018-12-15] MEDS ORDERED: MAGNESIUM HYDROXIDE SUSP 30 ML UDCUP PO PRN (15:27)
--- NOTE | 2018-12-15 15:45 | EKG REPORT ---
SEVERITY:- BORDERLINE ECG - SINUS RHYTHM BORDERLINE T ABNORMALITIES, ANT-LAT LEADS : Confirmed by: Ronald Collado MD 15-Dec-2018 15:44:19
--- NOTE | 2018-12-15 15:58 | PDOC H&P ---
History of Present Illness Admission Date/PCP: 12/15/18 14:48 KAREN BOSWELL Patient complains of: Psychiatric, difficulty speaking History of Present Illness: TAMARA STEPHENS is a 83 year old female with a past medical history significant for multiple previous CVA/TIA events, DVT, PE, s/p IVC filter, HTN, HLD, GERD, depression, who has intermittent expressive aphasia and is wheelchair-bound at baseline secondary to previous CVAs and presented to the emergency department today via EMS with a complaint of decreased mental status, expressive aphasia, and a left facial droop. The patient's left facial droop has resolved and she continues to have delayed/slurred speech, but is near her baseline per her daughter. Evaluation in the emergency department revealed anemia with a hemoglobin of 8.0 (baseline 10), mild hyperkalemia (K 5.6), unremarkable EKG, benign chest x-ray, and head CT that demonstrated chronic microvascular ischemic changes and prior lacunar infarct without evidence of acute CVA. She is referred to the hospitalist service for admission and TIA/CVA workup. Past Medical History Cardiac Medical History: Reports: Congestive Heart Failure, Coronary Artery Disease, DVT, Hyperlipidema, Hypertension, Pulmonary Embolism Denies: Atrial Fibrillation, Myocardial Infarction Pulmonary Medical History: Denies: Asthma, Bronchitis, Chronic Obstructive Pulmonary Disease (COPD), Pneumonia EENT Medical History: Reports: None Neurological Medical History: Reports: Ischemic CVA Denies: Seizures Endocrine Medical History: Denies: Diabetes Mellitus Type 2, Hypothyroidism Renal/ Medical History: Reports: None Malignancy Medical History: Reports: None GI Medical History: Reports: Diverticulitis, Gastroesophageal Reflux Disease Musculoskeltal Medical History: Reports: Arthritis Psychiatric Medical History: Reports: None, Depression Traumatic Medical History: Reports: None Hematology: Reports: Anemia Infectious Medical History: Reports: None Past Surgical History Past Surgical History: Reports: Vascular Surgery Social History Information Source: Patient, Relative, PENDING SALE TO [facility] Records Lives with: Assisted Smoking Status: Unknown if Ever Smoked Frequency of Alcohol Use: None Hx Recreational Drug Use: No Drugs: None Hx Prescription Drug Abuse: No - Advance Directive Resuscitation Status: Do Not Resuscitate Family History Family History: Reviewed & Not Pertinent, CAD Parental Family History Reviewed: Yes Children Family History Reviewed: Yes Sibling(s) Family History Reviewed.: Yes Medication/Allergy Home Medications: Carvedilol [Coreg 6.25 mg Tablet] 6.25 mg PO Q12 02/08/17 Gabapentin [Neurontin 100 mg Capsule] 100 mg PO Q12 02/08/17 Losartan Potassium [Cozaar 25 mg Tablet] 25 mg PO DAILY 02/08/17 Ranitidine HCl [Zantac 150 mg Tablet] 150 mg PO BID 02/08/17 Lorazepam [Ativan 1 mg Tablet] 1 mg PO QHS #30 02/12/17 Aspirin 81 mg PO DAILY 09/30/17 Oxybutynin Chloride 5 mg PO DAILY 09/30/17 Pravastatin Sodium 40 mg PO DAILY 09/30/17 Cetirizine HCl [Zyrtec 10 mg Tablet] 10 mg PO QHS 12/15/18 Citalopram Hydrobromide [Celexa 20 mg Tablet] 30 mg PO DAILY 12/15/18 Cyanocobalamin (Vitamin B-12) [Vitamin B-12 1000 Mcg Tablet] 1,000 mcg PO DAILY 12/15/18 Fluticasone Propionate [Flonase Nasal [place] 50 Mcg/[place] 16 gm] 2 sprays NASL DAILY 12/15/18 Allergies/Adverse Reactions: codeine Allergy (Mild, Verified 10/01/17 08:11) GI upset Review of Systems Constitutional: ABSENT: chills, fever(s), headache(s), weight gain, weight loss Eyes: ABSENT: visual disturbances Ears: ABSENT: hearing changes Cardiovascular: ABSENT: chest pain, dyspnea on exertion, edema, orthropnea, palpitations Respiratory: ABSENT: cough, hemoptysis Gastrointestinal: PRESENT: nausea. ABSENT: abdominal pain, constipation, diarrhea, hematemesis, hematochezia, vomiting Genitourinary: ABSENT: dysuria, hematuria Musculoskeletal: ABSENT: joint swelling Integumentary: ABSENT: rash, wounds Neurological: PRESENT: as per HPI, abnormal speech, confusion. ABSENT: abnormal gait, dizziness, focal weakness, syncope Psychiatric: ABSENT: anxiety, depression, homidical ideation, suicidal ideation Endocrine: ABSENT: cold intolerance, heat intolerance, polydipsia, polyuria Hematologic/Lymphatic: ABSENT: easy bleeding, easy bruising Physical Exam Vital Signs: Temp Pulse Resp BP Pulse Ox 89 15 105/54 L 98 12/15/18 11:42 12/15/18 13:01 12/15/18 13:01 12/15/18 13:01 General appearance: PRESENT: no acute distress, cooperative, disheveled, thin, well-developed Head exam: PRESENT: atraumatic, normocephalic Eye exam: PRESENT: conjunctiva pink, EOMI, PERRLA. ABSENT: scleral icterus Ear exam: PRESENT: normal external ear exam Mouth exam: PRESENT: moist, tongue midline Teeth exam: PRESENT: poor dentation Neck exam: ABSENT: carotid bruit, JVD, lymphadenopathy, thyromegaly Respiratory exam: PRESENT: clear to auscultation [place], symmetrical, unlabored, other - supplemental oxygen via NC. ABSENT: rales, rhonchi, wheezes Cardiovascular exam: PRESENT: RRR, +S1, +S2. ABSENT: diastolic murmur, rubs, systolic murmur Pulses: PRESENT: normal dorsalis pedis pul Vascular exam: PRESENT: normal capillary refill GI/Abdominal exam: PRESENT: normal bowel sounds, soft. ABSENT: distended, guarding, mass, organolmegaly, rebound, tenderness Rectal exam: PRESENT: deferred Extremities exam: PRESENT: full ROM. ABSENT: calf tenderness, clubbing, pedal edema Neurological exam: PRESENT: alert, awake, oriented to person, oriented to place, oriented to time, oriented to situation, CN II-XII grossly intact, aphasic - slight expressive aphasia; slow/delayed speech. ABSENT: motor sensory deficit Psychiatric exam: PRESENT: appropriate affect, normal mood. ABSENT: homicidal ideation, suicidal ideation Skin exam: PRESENT: dry, intact, warm. ABSENT: cyanosis, rash Results Laboratory Results: 12/15/18 12:11 12/15/18 12:11 12/15/18 12/15/18 12:11 12:11 WBC 6.9 RBC 4.00 Hgb 8.0 L Hct 26.7 L MCV 67 L MCH 19.9 L MCHC 29.7 L RDW 17.4 H Plt Count 362 Seg Neutrophils % 68.0 Lymphocytes % 19.1 Monocytes % 9.6 Eosinophils % 2.0 Basophils % 1.3 Absolute Neutrophils 4.7 Absolute Lymphocytes 1.3 Absolute Monocytes 0.7 Absolute Eosinophils 0.1 Absolute Basophils 0.1 Sodium 137.4 Potassium 5.6 H Chloride 104 Carbon Dioxide 23 Anion Gap 10 BUN 13 Creatinine 1.05 Est GFR ( Amer) > 60 Est GFR (Non-Af Amer) 50 L Glucose 140 H Calcium 9.1 Total Bilirubin 0.9 AST 33 ALT 16 Alkaline Phosphatase 78 Total Protein 6.6 Albumin 4.0 12/15/18 12/15/18 12:11 12:11 Creatine Kinase 96 CK-MB (CK-2) 0.99 Troponin I < 0.012 Impressions: Chest X-Ray 12/15/18 11:42 IMPRESSION: NO ACUTE RADIOGRAPHIC FINDING IN THE CHEST. Head CT 12/15/18 11:42 IMPRESSION: Stable nonspecific white matter changes and prior lacunar infarcts without evidence of acute large vascular territory infarct. MRI would be more sensitive for evaluation of acute on chronic event. EVIDENCE OF ACUTE STROKE: NO. Assessment & Plan - Diagnosis (1) TIA (transient ischemic attack) Is this a current diagnosis for this admission?: Yes Plan: Patient has a sudden onset of expressive aphasia and decreased alertness at approximately 10 AM. Upon arrival to the emergency department by EMS, the patient was alert, oriented to self, place, year with improved speech, though has not entirely returned to baseline per daughter. Per the patient's daughter, she is wheelchair-bound with intermittent expressive aphasia at baseline due to previous CVA events. Patient's daughter confirms that she has a history of DVTs, PE, GI bleed, and IVC filter; not a candidate for long-term anticoagulants. Daughter does request admission and full workup for TIA/CVA. Patient is admitted to [facility] on continuous cardiac telemetry. We will obtain MRI of the head, carotid Doppler, echocardiogram. Will assess TSH, A1c, and lipid panel with a.m. lab work. ST/PT evaluations. Full dose aspirin and statin therapy daily. Discharge planning is consulted; patient likely to return to [facility] at discharge. (2) Hyperlipidemia Is this a current diagnosis for this admission?: Yes Plan: Lipid panel with AM labs. Daily statin therapy. Cardiac diet. (3) Hypertension Is this a current diagnosis for this admission?: Yes Plan: Slightly low at present. Will continue home dose Carvedilol and reduced dose Losartan. Cardiac diet. (4) Do not resuscitate Is this a current diagnosis for this admission?: Yes - Time Time Spent: 50 to 70 Minutes Medications reviewed and adjusted accordingly: Yes Anticipated discharge: SNF - Established resident at [facility]. Within: within 24 hours
[2018-12-15] MEDS ORDERED: ASPIRIN 325 MG TABLET ONE (16:46)
[2018-12-15] MEDS ORDERED: ASPIRIN 81 MG TABLET, CHEWABLE ONE (16:52)
[2018-12-15] MEDS: NORMAL SALINE 1000 ML 1,000 ML IV PRN (17:35)
--- NOTE | 2018-12-15 19:18 | RADIOLOGY REPORT (SQ) ---
EXAM DESCRIPTION: MRI HEAD WITHOUT COMPLETED DATE/TIME: 12/15/2018 6:52 pm REASON FOR STUDY: TIA; lt facial droop, aphasia COMPARISON: 02/08/2017 TECHNIQUE: Multiplanar imaging includes non-contrasted T1, T2, FLAIR, and diffusion with ADC map seq uences. Images stored on PACS. LIMITATIONS: None. FINDINGS: ANATOMY: No anomalies. Normal vascular flow voids. Pituitary fossa normal. CSF SPACES: Atrophy induced prominence of ventricles and CSF spaces. CEREBRUM: High signal intensity lesions scattered throughout the white matter on FLAIR imaging with d istribution suggesting micro-vascular ischemic changes. No evidence of hemorrhage, mass, or extraaxi al fluid collection. POSTERIOR FOSSA: No signal alteration. No hemorrhage. No edema, masses or mass effect. Internal ann tory canals, cerebello-pontine angles, mastoids normal. DIFFUSION IMAGING: Negative for acute or sub-acute infarction. ORBITS: No masses. Globes normal. PARANASAL SINUSES: No fluid levels. Mucosa normal. OTHER: No other significant finding. IMPRESSION: ATROPHY AND CHRONIC MICRO-VASCULAR ISCHEMIC CHANGES. OTHERWISE NORMAL MRI OF THE BRAIN W ITHOUT INTRAVENOUS GADOLINIUM CONTRAST. EVIDENCE OF ACUTE STROKE: NO. TECHNICAL DOCUMENTATION: JOB ID: [id number] [employer]- All Rights Reserved Reading location - IP/workstation name: [email or web address]
[2018-12-15] MEDS ORDERED: LORAZEPAM 1 MG TABLET PO SCH (22:00)
[2018-12-15] MEDS: LANSOPRAZOLE 30 MG TAB.RAP.DR PO SCH (22:29)
[2018-12-15] MEDS: CARVEDILOL 6.25 MG TABLET PO SCH (22:32)
[2018-12-15] MEDS: GABAPENTIN 100 MG CAPSULE PO SCH (22:37)
[2018-12-15] MEDS: ATORVASTATIN CALCIUM 80 MG TABLET PO SCH (22:38)
[2018-12-15] MEDS: HEPARIN SOD (PORCINE) 5,000 UNIT/ML 1 ML SYRINGE SUBCUT SCH (22:38)
[2018-12-15] MEDS: CETIRIZINE 10 MG TABLET PO SCH (22:38)
[2018-12-15] MEDS: LORAZEPAM 0.5 MG TABLET PO SCH (22:46)
[2018-12-16] MEDS: LANSOPRAZOLE 30 MG TAB.RAP.DR PO SCH ×2 (05:25→17:26)
[2018-12-16] MEDS: HEPARIN SOD (PORCINE) 5,000 UNIT/ML 1 ML SYRINGE SUBCUT SCH ×3 (05:25→22:23)
[2018-12-16 06:25] LABS: ABSOLUTE RETICS # 0.071 10^6/uL (0.028-0.122); HEMATOCRIT 26.8 % (36.0-47.0); MEAN CORPUSCULAR HEMOGLOBIN 19.7 pg (27.0-33.4); MEAN CORPUSCULAR VOLUME 66 fl (80-97); PLATELET COUNT 382 10^3/uL (150-450); RED BLOOD COUNT 4.07 10^6/uL (3.72-5.28); RETICULOCYTE COUNT (AUTO) 1.74 % (0.66-2.85)
[2018-12-16 06:41] LABS: ANION GAP 11 (5-19); BLOOD UREA NITROGEN 23 mg/dL (7-20); CALCIUM 8.5 mg/dL (8.4-10.2); CARBON DIOXIDE 22 mmol/L (22-30); CHLORIDE 104 mmol/L (98-107); CHOLESTEROL 93.94 mg/dL (0-200); GLUCOSE 107 mg/dL (75-110); IRON(TIBC) 15.4 ug/dL (37-170); POTASSIUM 4.9 mmol/L (3.6-5.0); SODIUM 136.5 mmol/L (137-145); TRIGLYCERIDES 45 mg/dL (<150)
[2018-12-16 06:51] LABS: DIRECT LDL 49 mg/dL (<100)
[2018-12-16 07:09] LABS: WHITE BLOOD COUNT 21.1 10^3/uL (4.0-10.5)
[2018-12-16 07:18] LABS: FERRITIN 6.35 ng/mL (11.1-264.0)
[2018-12-16 07:48] LABS: FOLATE 4.94 ng/mL (>2.76)
[2018-12-16] MEDS: NORMAL SALINE 1000 ML 1,000 ML IV PRN ×2 (09:32→17:25)
[2018-12-16] MEDS ORDERED: LOSARTAN POTASSIUM 25 MG TABLET PO SCH (10:00)
[2018-12-16] MEDS ORDERED: CLOPIDOGREL BISULFATE 75 MG TABLET PO SCH (10:00)
[2018-12-16 10:03] LABS: MEAN CORPUSCULAR HEMOGLOBIN 19.7 pg (27.0-33.4); MEAN CORPUSCULAR VOLUME 66 fl (80-97); PLATELET COUNT 350 10^3/uL (150-450); RED BLOOD COUNT 3.78 10^6/uL (3.72-5.28); RED CELL DISTRIBUTION WIDTH 17.1 % (11.5-14.0); WHITE BLOOD COUNT 17.8 10^3/uL (4.0-10.5)
[2018-12-16 10:09] LABS: HEMOGLOBIN 7.4 g/dL (12.0-15.5); MEAN CORPUSCULAR HGB CONC 29.7 g/dL (32.0-36.0)
[2018-12-16] MEDS: CARVEDILOL 6.25 MG TABLET PO SCH ×2 (12:06→22:26)
[2018-12-16] MEDS: LOSARTAN POTASSIUM 25 MG TABLET PO SCH (12:06)
[2018-12-16] MEDS: GABAPENTIN 100 MG CAPSULE PO SCH ×2 (12:19→22:23)
[2018-12-16] MEDS: OXYBUTYNIN CHLORIDE 5 MG TABLET PO SCH (12:19)
[2018-12-16] MEDS: CYANOCOBALAMIN (VITAMIN B-12) 1,000 MCG TABLET PO SCH (12:20)
[2018-12-16] MEDS: ASPIRIN 325 MG TABLET, ENT COATED PO SCH (12:20)
--- NOTE | 2018-12-16 12:35 | RADIOLOGY REPORT (SQ) ---
EXAM DESCRIPTION: CAROTID DOPPLER COMPLETED DATE/TIME: 12/16/2018 12:03 pm REASON FOR STUDY: TIA; lt facial droop, aphasia R41.82 ALTERED MENTAL STATUS, UNSPECIFIED COMPARISON: 02/10/2017 TECHNIQUE: Grayscale ultrasound, Doppler velocity and spectra, and color Doppler images acquired of the extra-cranial carotid and vertebral arteries. Images stored on PACS. LIMITATIONS: None. FINDINGS: RIGHT CAROTID CCA Velocities: Within normal limits. ICA Velocities Peak systolic 89 cm/s. End diastolic 18 cm/s. Proximal ICA/CCA peak systolic ratio 0.9. There is some heterogeneous plaque in the proximal internal carotid and carotid bulb. LEFT CAROTID CCA Velocities: Within normal limits. ICA Velocities Peak systolic 93 cm/s. End diastolic 16 cm/s. Proximal ICA/CCA peak systolic ratio 1.0. There is some heterogeneous plaque in the proximal internal carotid. VERTEBRAL ARTERIES: Antegrade flow. Normal waveforms. SUBCLAVIAN ARTERIES: No finding. OTHER: No other significant finding. IMPRESSION: Atherosclerotic changes with no hemodynamically significant lesion. COMMENT: Quality ID #[id number]: Velocity criteria are extrapolated from the diameter data as defined by t he Society of Radiologists in Ultrasound Consensus Conference. Radiology 2003: 229; 340-346. TECHNICAL DOCUMENTATION: JOB ID: [id number] [employer]- All Rights Reserved Reading location - IP/workstation name: [email or web address]
[2018-12-16] MEDS: FLUTICASONE NASAL SPRAY 50 MCG/SPRY 120 SPRAY/16 GM NASL SCH (12:38)
[2018-12-16] MEDS ORDERED: CEFTRIAXONE 1 GM/D5W RTU 1 GM/50 ML RTUPB IV SCH (14:00)
[2018-12-16 14:24] LABS: APPEARANCE,URINE SLIGHTLY-CLOUDY; BILIRUBIN,URINE NEGATIVE (NEGATIVE); COLOR,URINE AMBER; GLUCOSE, URINE NEGATIVE (NEGATIVE); KETONES,URINE NEGATIVE (NEGATIVE); LEUKOCYTE ESTERASE,URINE NEGATIVE (NEGATIVE); NITRITE,URINE NEGATIVE (NEGATIVE); PROTEIN,URINE NEGATIVE (NEGATIVE); URINE SPECIFIC GRAVITY 1.019
[2018-12-16] MEDS ORDERED: NORMAL SALINE 500 ML IV ONE (14:30)
--- NOTE | 2018-12-16 17:19 | RADIOLOGY REPORT (SQ) ---
EXAM DESCRIPTION: CHEST SINGLE VIEW COMPLETED DATE/TIME: 12/16/2018 5:00 pm REASON FOR STUDY: dyspnea COMPARISON: 12/15/2018 EXAM PARAMETERS: NUMBER OF VIEWS: One view. TECHNIQUE: Single frontal radiographic view of the chest acquired. RADIATION DOSE: NA LIMITATIONS: None. FINDINGS: LUNGS AND PLEURA: No opacities, masses or pneumothorax. No pleural effusion. MEDIASTINUM AND HILAR STRUCTURES: No masses. Contour normal. HEART AND VASCULAR STRUCTURES: Heart normal in size. Normal vasculature. BONES: No acute findings. HARDWARE: None in the chest. OTHER: No other significant finding. IMPRESSION: NO ACUTE RADIOGRAPHIC FINDING IN THE CHEST. TECHNICAL DOCUMENTATION: JOB ID: [id number] [employer]- All Rights Reserved Reading location - IP/workstation name: [email or web address]
[2018-12-16] MEDS: CEFTRIAXONE 2 GM/D5W RTU 2 GM/50 ML RTUPB IV SCH (17:29)
[2018-12-16] MEDS ORDERED: IRON SUCROSE COMPLEX 300 MG in NORMAL SALINE 250 ML IV ONE (18:00)
[2018-12-16] MEDS ORDERED: NORMAL SALINE 250 ML IV PRN ×2 (18:11)
--- NOTE | 2018-12-16 18:19 | PDOC PROGRESS REPORT ---
Subjective Progress Note for:: 12/16/18 Subjective:: The patient s a 83 year old female with a past medical history significant for multiple previous CVA/TIA events, DVT, PE, s/p IVC filter, HTN, HLD, GERD, depression, who has intermittent expressive aphasia and is wheelchair-bound at baseline secondary to previous CVAs who was admitted 12/15/2018 for TIA/CVA workup secondary to report of worsened expressive aphasia and short episode of nonresponsiveness. The patient was briefly seen early this morning while obtaining echocardiogram. She was awake, alert, and oriented to self. She was noted to respond to yes or no questions appropriately, but did appear to have delayed responses with some confusion with more complex thoughts/conversation. She did follow commands; bit shaver were equal. Remaining exam was somewhat limited secondary to positioning and participation in echocardiogram. Patient denies fever, chills, headache, chest pain, palpitations, dyspnea, abdominal pain, nausea vomiting and diarrhea. I spoke with the patient's daughters this afternoon; they were updated on the results of the MRI and carotid Doppler. Discussed that the patient had developed an elevated WBC which could be a stress reaction, but also could potentially be an indication of infection. I approach the subject of an LP as the patient did have neurological symptoms; both daughters adamantly declined LP at this time. They were agreeable to straight catheter for evaluation of UTI. Per the patient's daughters, she is much improved today, though not quite back to her baseline. Nursing called this afternoon to report that the patient had become hypotensive; blood pressures 94/32 (manual), patient remains alert and oriented as above without complaints of chest pain or palpitations. Reason For Visit: TIA Physical Exam Vital Signs: Temp Pulse Resp BP Pulse Ox 98.6 F 101 H 18 94/32 L 96 12/16/18 13:30 12/16/18 14:00 12/16/18 13:30 12/16/18 13:30 12/16/18 14:31 Intake & Output 12/15/18 12/16/18 12/17/18 06:59 06:59 06:59 Intake Total 86 1742 Balance 86 1742 Weight 62.1 kg General appearance: PRESENT: no acute distress, cooperative, thin, well- developed Head exam: PRESENT: atraumatic, normocephalic Eye exam: PRESENT: conjunctiva pink, EOMI, PERRLA. ABSENT: scleral icterus Mouth exam: PRESENT: moist, tongue midline Teeth exam: PRESENT: poor dentation Neck exam: ABSENT: carotid bruit, JVD, lymphadenopathy, thyromegaly Respiratory exam: PRESENT: clear to auscultation [place], symmetrical, unlabored, other - Supplemental oxygen via nasal cannula. ABSENT: rales, rhonchi, wheezes Cardiovascular exam: PRESENT: RRR Pulses: PRESENT: normal dorsalis pedis pul Rectal exam: PRESENT: deferred Extremities exam: PRESENT: full ROM. ABSENT: calf tenderness, clubbing, pedal edema Neurological exam: PRESENT: alert, awake, oriented to person, CN II-XII grossly intact, other - Slight expressive aphasia; improved from yesterday. Continues to have slow/delayed speech. Kitchen Utility Associate 5/5 bilaterally, dorsiflexion 3/5 on left, 2/5 on right (residual right-sided weakness from prior CVA).. ABSENT: motor sensory deficit Psychiatric exam: PRESENT: appropriate affect, normal mood. ABSENT: homicidal ideation, suicidal ideation Skin exam: PRESENT: dry, intact, warm. ABSENT: cyanosis, rash Results Laboratory Results: 12/16/18 09:49 12/16/18 05:22 12/16/18 12/16/18 12/16/18 05:22 05:22 05:22 WBC 21.1 H D RBC 4.07 Hgb 8.0 L Hct 26.8 L MCV 66 L MCH 19.7 L MCHC 30.0 L RDW 17.0 H Plt Count 382 Retic Count (auto) 1.74 Absolute Retic 0.071 Sodium 136.5 L Potassium 4.9 Chloride 104 Carbon Dioxide 22 Anion Gap 11 BUN 23 H Creatinine 1.03 Est GFR ( Amer) > 60 Est GFR (Non-Af Amer) 51 L Glucose 107 Calcium 8.5 Iron 15.4 L TIBC 354 % Saturation 4 Ferritin 6.35 L Triglycerides 45 Cholesterol 93.94 LDL Cholesterol Direct 49 VLDL Cholesterol 9.0 L HDL Cholesterol 40 Vitamin B12 > 1000.0 H Folate 4.94 TSH 1.59 Urine Color Urine Appearance Urine pH Ur Specific [place] Urine Protein Urine Glucose (UA) Urine Ketones Urine Blood Urine Nitrite Ur Leukocyte Esterase Urine WBC (Auto) Urine RBC (Auto) 12/16/18 12/16/18 09:49 13:05 WBC 17.8 H RBC 3.78 Hgb 7.4 L Hct 25.0 L MCV 66 L MCH 19.7 L MCHC 29.7 L RDW 17.1 H Plt Count 350 Retic Count (auto) Absolute Retic Sodium Potassium Chloride Carbon Dioxide Anion Gap BUN Creatinine Est GFR ( Amer) Est GFR (Non-Af Amer) Glucose Calcium Iron TIBC % Saturation Ferritin Triglycerides Cholesterol LDL Cholesterol Direct VLDL Cholesterol HDL Cholesterol Vitamin B12 Folate TSH Urine Color [place] Urine Appearance SLIGHTLY-CLOUDY Urine pH 5.0 Ur Specific [place] 1.019 Urine Protein NEGATIVE Urine Glucose (UA) NEGATIVE Urine Ketones NEGATIVE Urine Blood NEGATIVE Urine Nitrite NEGATIVE Ur Leukocyte Esterase NEGATIVE Urine WBC (Auto) 0 Urine RBC (Auto) 0 12/15/18 12/15/18 12/16/18 12:11 12:11 09:49 Creatine Kinase 96 CK-MB (CK-2) 0.99 Troponin I < 0.012 < 0.012 Impressions: Head CT 12/15/18 11:42 IMPRESSION: Stable nonspecific white matter changes and prior lacunar infarcts without evidence of acute large vascular territory infarct. MRI would be more sensitive for evaluation of acute on chronic event. EVIDENCE OF ACUTE STROKE: NO. Head MRI 12/15/18 17:38 IMPRESSION: ATROPHY AND CHRONIC MICRO-VASCULAR ISCHEMIC CHANGES. OTHERWISE NORMAL MRI OF THE BRAIN WITHOUT INTRAVENOUS GADOLINIUM CONTRAST. EVIDENCE OF ACUTE STROKE: NO. Carotid Doppler Study 12/16/18 00:00 IMPRESSION: Atherosclerotic changes with no hemodynamically significant lesion. Chest X-Ray 12/16/18 15:45 IMPRESSION: NO ACUTE RADIOGRAPHIC FINDING IN THE CHEST. Assessment & Plan - Diagnosis (1) TIA (transient ischemic attack) Is this a current diagnosis for this admission?: Yes Plan: Patient experienced a brief episode of nonresponsiveness with worsened expressive aphasia; onset yesterday morning. Per the patient's daughter, she is wheelchair-bound with intermittent expressive aphasia and residual right side weakness at baseline due to previous CVA events. Patient's daughter confirms that she has a history of DVTs, PE, GI bleed, and IVC filter; not a candidate for long-term anticoagulants. Head CT revealed chronic microvascular ischemic changes with prior lacunar infarct. Head MRI demonstrated atrophy and chronic microvascular ischemic changes; otherwise normal MRI of the brain. Carotid Dopplers were negative for hemodynamically significant stenosis. Chest x-rays are benign. EKG demonstrates NSR with nonspecific T wave changes to the anterior leads. No changes noted by telemetry. Echocardiogram is pending. ST evaluation recommends ground meat and mechanical soft diet with thin liquids and crushed pills. PT/OT evaluations are pending. TSH, lipid, and A1c are all acceptable. Patient is admitted to [facility] on continuous cardiac telemetry. Continue full dose aspirin and statin therapy daily. Discharge planning is consulted; patient likely to return to [facility] at discharge. (2) Hyperlipidemia Is this a current diagnosis for this admission?: Yes Plan: Lipid panel is acceptable. Daily statin therapy. Cardiac diet. (3) Hypertension Is this a current diagnosis for this admission?: Yes Plan: Continues to be hypotensive. Reduced dose Carvedilol and reduced dose Losartan. Cardiac diet. (4) Leukocytosis Is this a current diagnosis for this admission?: Yes Plan: Patient was noted to have an elevated white count of 21.1 today; up from 6.9 yesterday. Repeat to confirm is 17.8. Patient has been afebrile overnight and has no s/sx of infection. She did recently complete a course of antibiotics (Levaquin) for UTI. Urinalysis is negative for UTI. Urine and blood cultures are pending. Repeat chest x-ray is benign. Possibly a stress reaction, however, with associated neuro symptoms (brief episode of unresponsiveness followed by intermittent worsened expressive aphasia) I am concerned that there may be some potential for occult infection or meningitis. Discussed with family members option for LP; adamantly declined at this time. Have started empiric Rocephin 2 g IV daily. We will continue to monitor and adjust antibiotics as cultures result. (5) Do not resuscitate Is this a current diagnosis for this admission?: Yes (6) Anemia Qualifiers: Anemia type: iron deficiency Is this a current diagnosis for this admission?: Yes Plan: Patient appears to have chronic anemia with a baseline of 10.7. She was admitted with a hemoglobin of 8.0 which is trended down to 7.4 with IV fluids. Anemia panel does reveal iron deficiency; iron 15.4, ferritin 6.35 Occult stool pending. Will obtain type and screen and transfuse 1 unit PRBC as the patient is noted to be hypotensive (90/30) and slightly tachcyardic (103). Hold Plavix. Multivitamin with iron supplement. Consider IV iron infusion and/or hematology consultation. barrel and receiver aligner is consulted. - Time Time Spent with patient: 15-24 minutes Medications reviewed and adjusted accordingly: Yes Anticipated discharge: SNF - Resident at [facility] - Inpatient Certification Based on my medical assessment, after consideration of the patient's comorbidities, presenting symptoms, or acuity I expect that the services needed warrant INPATIENT care.: Yes I certify that my determination is in accordance with my understanding of Medicare's requirements for reasonable and necessary INPATIENT services [42 CFR 412.3e].: Yes Medical Necessity: Significant Comorbidiites Make Outpatient Treatment Too Risky, Need Close Monitoring Due to Risk of Patient Decompensation, Need For IV Fluids, Need For Continuous Telemetry Monitoring, Need for IV Antibiotics
[2018-12-16] MEDS: CETIRIZINE 10 MG TABLET PO SCH (22:23)
[2018-12-16] MEDS: ATORVASTATIN CALCIUM 80 MG TABLET PO SCH (22:23)
--- NOTE | 2018-12-16 23:04 | XCELERA REPORT ---
[address] [address] Transthoracic Echocardiogram Report Name: TAMARA STEPHENS Age: 83 yrs Gender: Female : 1935 Patient Status: Inpatient Patient Location: [address] [place] [address] Study Date: 12/16/2018 10:46 AM Height: 65 in Weight: 137 lb BSA: 1.7 m2 Procedure: A two-dimensional transthoracic echocardiogram with color flow and Doppler was performed. Study Quality: Fair. Reason For Study: TIA; lt facial droop, aphasia History: TIA. Ordering Physician: SANTHOSH JOSÉ Performed By: Brandy Chiang Interpretation Summary There is no obvious cardiac source of embolus noted on this transthoracic echocardiogram. Follow-up with a DEEPAK is suggested if cardiac source is still suspected. LV EF is > than 60% The left ventricular ejection fraction is normal. The left ventricle is normal in size. There is normal left ventricular wall thickness. Doppler measurements suggest impaired left ventricular relaxation, which is associated with grade I/IV or mild diastolic dysfunction The left ventricular wall motion is normal. There is no thrombus. The right ventricle is grossly normal size. The right atrium is normal. The left atrium is borderline dilated. There is no evidence of mitral valve prolapse. There is no vegetation seen on the mitral valve. There is no mitral valve stenosis. There is a mild amount of mitral regurgitation There is no aortic valvular vegetation. There is mild aortic stenosis There is a peak gradient of 16 mm of Hg. No hemodynamically significant valvular aortic stenosis. There is no LVOT obstruction. There is a mild amount of aortic regurgitation There is no tricuspid stenosis. There is a mild amount of tricuspid regurgitation There is mild pulmonary hypertension by echo RVSP is 33 mm of Hg , with RA mean of 10. There is no pulmonic valvular stenosis. There is no pulmonic valvular regurgitation. The aortic root is normal size. There is no pericardial effusion. There is no obvious cardiac source of embolus noted on this transthoracic echocardiogram. Follow-up with a DEEPAK is suggested if cardiac source is still suspected MMode/2D Measurements & Calculations RVDd: 2.9 cm LVIDd: 4.6 cm FS: 33.7 % Ao root diam: 2.6 cm IVSd: 0.97 cm LVIDs: 3.1 cm EDV(Teich): Ao root area: LVPWd: 1.0 cm 98.0 ml 5.4 cm2 ESV(Teich): LA dimension: 3.7 cm 36.7 ml EF(Teich): 62.5 % LVLd ap4: 7.3 cm SV(MOD-sp4): EDV(MOD-sp4): 41.0 ml 74.0 ml LVLs ap4: 6.5 cm ESV(MOD-sp4): 33.0 ml EF(MOD-sp4): 55.4 % Doppler Measurements & Calculations MV E max sofia: MV P1/2t max sofia: Ao V2 max: AI max sofia: 104.6 cm/sec 104.6 cm/sec 196.2 cm/sec 441.6 cm/sec MV A max sofia: MV P1/2t: 50.5 msec Ao max PG: AI max P.1 cm/sec MVA(P1/2t): 4.4 cm2 15.4 mmHg 78.0 mmHg MV E/A: 0.97 MV dec slope: AI dec slope: 607.5 cm/sec2 490.8 cm/sec2 MV dec time: 0.18 sec AI P1/2t: 263.5 msec LV V1 max PG: PA V2 max: TR max sofia: AV P1/2t-pr_phl: 2.8 mmHg 76.0 cm/sec 240.3 cm/sec 263.5 msec LV V1 max: PA max P.3 mmHg TR max P.9 cm/sec 23.1 mmHg MV P1/2t-pr_phl: 50.5 msec Left Ventricle The left ventricle is normal in size. There is normal left ventricular wall thickness. LV EF is > than 60%. The left ventricular ejection fraction is normal. Doppler measurements suggest impaired left ventricular relaxation, which is associated with grade I/IV or mild diastolic dysfunction. The left ventricular wall motion is normal. There is no thrombus. Right Ventricle The right ventricle is grossly normal size. Atria The right atrium is normal. The left atrium is borderline dilated. Mitral Valve There is no evidence of mitral valve prolapse. There is no vegetation seen on the mitral valve. There is no mitral valve stenosis. There is a mild amount of mitral regurgitation. Aortic Valve There is no aortic valvular vegetation. There is mild aortic stenosis. There is a peak gradient of 16 mm of Hg. No hemodynamically significant valvular aortic stenosis. There is no LVOT obstruction. There is a mild amount of aortic regurgitation. Tricuspid Valve There is no tricuspid stenosis. There is a mild amount of tricuspid regurgitation. There is mild pulmonary hypertension by echo. RVSP is 33 mm of Hg , with RA mean of 10. Pulmonic Valve There is no pulmonic valvular stenosis. There is no pulmonic valvular regurgitation. Great Vessels The aortic root is normal size. Effusions There is no pericardial effusion. : SANTHOSH JOSÉ Lakshmi
[2018-12-17 02:17] LABS: ABSOLUTE LYMPHOCYTES (AUTO) 2.1 10^3/uL (0.5-4.7); ABSOLUTE MONOCYTES (AUTO) 1.8 10^3/uL (0.1-1.4); ABSOLUTE NEUT (AUTO) 9.3 10^3/uL (1.7-8.2); BASOPHILS % (AUTO) 0.3 % (0-2); EOSINOPHILS % (AUTO) 0.3 % (0-6); HEMATOCRIT 26.1 % (36.0-47.0); HEMOGLOBIN 8.1 g/dL (12.0-15.5); LYMPHOCYTES % (AUTO) 15.6 % (13-45); MEAN CORPUSCULAR HEMOGLOBIN 21.7 pg (27.0-33.4); MEAN CORPUSCULAR HGB CONC 31.2 g/dL (32.0-36.0); MONOCYTES % (AUTO) 13.7 % (3-13); PLATELET COUNT 261 10^3/uL (150-450); RED BLOOD COUNT 3.76 10^6/uL (3.72-5.28); RED CELL DISTRIBUTION WIDTH 20.6 % (11.5-14.0); SEGMENTED NEUTROPHILS % (AUTO) 70.1 % (42-78); TOTAL CELLS COUNTED % (AUTO) 100 %; WHITE BLOOD COUNT 13.2 10^3/uL (4.0-10.5)
[2018-12-17 02:24] LABS: MEAN CORPUSCULAR VOLUME 70 fl (80-97)
[2018-12-17 02:42] LABS: BLOOD UREA NITROGEN 15 mg/dL (7-20); CALCIUM 8.1 mg/dL (8.4-10.2); GLUCOSE 91 mg/dL (75-110); POTASSIUM 4.1 mmol/L (3.6-5.0)
[2018-12-17 02:47] LABS: ANION GAP 5 (5-19); CARBON DIOXIDE 22 mmol/L (22-30); CHLORIDE 108 mmol/L (98-107); SODIUM 135.3 mmol/L (137-145)
[2018-12-17] MEDS: LORAZEPAM 0.5 MG TABLET PO SCH ×2 (05:36→21:37)
[2018-12-17] MEDS: HEPARIN SOD (PORCINE) 5,000 UNIT/ML 1 ML SYRINGE SUBCUT SCH ×3 (05:38→21:37)
[2018-12-17] MEDS: LANSOPRAZOLE 30 MG TAB.RAP.DR PO SCH ×2 (05:40→17:36)
[2018-12-17] MEDS: GABAPENTIN 100 MG CAPSULE PO SCH ×2 (11:21→21:37)
[2018-12-17] MEDS: ASPIRIN 325 MG TABLET, ENT COATED PO SCH (11:22)
[2018-12-17] MEDS: CYANOCOBALAMIN (VITAMIN B-12) 1,000 MCG TABLET PO SCH (11:22)
[2018-12-17] MEDS: OXYBUTYNIN CHLORIDE 5 MG TABLET PO SCH (11:22)
[2018-12-17] MEDS: CARVEDILOL 6.25 MG TABLET PO SCH ×2 (11:28→21:37)
[2018-12-17] MEDS: LOSARTAN POTASSIUM 25 MG TABLET PO SCH (11:29)
[2018-12-17] MEDS: FLUTICASONE NASAL SPRAY 50 MCG/SPRY 120 SPRAY/16 GM NASL SCH (11:31)
--- NOTE | 2018-12-17 17:22 | PDOC PROGRESS REPORT ---
Subjective Progress Note for:: 12/17/18 Subjective:: The patient s a 83 year old female with a past medical history significant for multiple previous CVA/TIA events, DVT, PE, s/p IVC filter, HTN, HLD, GERD, depression, who has intermittent expressive aphasia and is wheelchair-bound at baseline secondary to previous CVAs who was admitted 12/15/2018 for TIA/CVA workup secondary to report of worsened expressive aphasia and short episode of nonresponsiveness. The patient wason afternoon rounds. She is A&O to self, place, and situation. She answered all questions clearly and appropriately, though with some occasional delayed speech. She tells me that she is feeling very well today and states that she is glad that she likely did not have another stroke. Patient denies fever, chills, headache, chest pain, palpitations, dyspnea, abdominal pain, nausea vomiting and diarrhea. Nursing reports continued mild hypotension; have been holding her Coreg and losartan. Patient was noted to have a short run of ventricular tachycardia; patient was alert and asymptomatic at the time. We will place holding parameters and asked nursing to resume lower dose Coreg. Reason For Visit: TIA Physical Exam Vital Signs: Temp Pulse Resp BP Pulse Ox 97.4 F 91 20 105/38 L 96 12/17/18 15:51 12/17/18 15:51 12/17/18 15:51 12/17/18 15:51 12/17/18 15:51 Intake & Output 12/16/18 12/17/18 12/18/18 06:59 06:59 06:59 Intake Total 86 2565 Balance 86 2565 Weight 62.1 kg 61.9 kg General appearance: PRESENT: no acute distress, cooperative, thin, well- developed Head exam: PRESENT: atraumatic, normocephalic Eye exam: PRESENT: conjunctiva pink, EOMI, PERRLA. ABSENT: scleral icterus Ear exam: PRESENT: normal external ear exam Mouth exam: PRESENT: moist, tongue midline Teeth exam: PRESENT: poor dentation Neck exam: ABSENT: carotid bruit, JVD, lymphadenopathy, thyromegaly Respiratory exam: PRESENT: clear to auscultation [place], symmetrical, unlabored, other - Supplemental oxygen via nasal cannula. ABSENT: rales, rhonchi, wheezes Cardiovascular exam: PRESENT: RRR, +S1, +S2. ABSENT: diastolic murmur, rubs, systolic murmur Pulses: PRESENT: normal dorsalis pedis pul Vascular exam: PRESENT: normal capillary refill GI/Abdominal exam: PRESENT: normal bowel sounds, soft. ABSENT: distended, guarding, mass, organolmegaly, rebound, tenderness Rectal exam: PRESENT: deferred Extremities exam: PRESENT: full ROM. ABSENT: calf tenderness, clubbing, pedal edema Neurological exam: PRESENT: alert, awake, oriented to person, oriented to place, oriented to time, oriented to situation, CN II-XII grossly intact, other - Slight, intermittent, expressive aphasia; return to baseline per patient's family. Layout Operator 5/5 bilaterally, dorsiflexion 3/5 on left, 2/5 on right (residual right-sided weakness from prior CVA). ABSENT: motor sensory deficit Psychiatric exam: PRESENT: appropriate affect, normal mood. ABSENT: homicidal ideation, suicidal ideation Skin exam: PRESENT: dry, intact, warm. ABSENT: cyanosis, rash Results Laboratory Results: 12/17/18 02:08 12/17/18 02:08 12/16/18 12/17/18 12/17/18 18:38 02:08 02:08 WBC 13.2 H RBC 3.76 Hgb 8.1 L Hct 26.1 L MCV 70 L D MCH 21.7 L MCHC 31.2 L RDW 20.6 H Plt Count 261 Seg Neutrophils % 70.1 Lymphocytes % 15.6 Monocytes % 13.7 H Eosinophils % 0.3 Basophils % 0.3 Absolute Neutrophils 9.3 H Absolute Lymphocytes 2.1 Absolute Monocytes 1.8 H Absolute Eosinophils 0.0 Absolute Basophils 0.0 Sodium 135.3 L Potassium 4.1 Chloride 108 H Carbon Dioxide 22 Anion Gap 5 BUN 15 Creatinine 0.86 Est GFR ( Amer) > 60 Est GFR (Non-Af Amer) > 60 Glucose 91 Calcium 8.1 L Blood Type A POSITIVE Antibody Screen NEGATIVE 12/15/18 12/15/18 12/16/18 12:11 12:11 09:49 Creatine Kinase 96 CK-MB (CK-2) 0.99 Troponin I < 0.012 < 0.012 Impressions: Head CT 12/15/18 11:42 IMPRESSION: Stable nonspecific white matter changes and prior lacunar infarcts without evidence of acute large vascular territory infarct. MRI would be more sensitive for evaluation of acute on chronic event. EVIDENCE OF ACUTE STROKE: NO. Head MRI 12/15/18 17:38 IMPRESSION: ATROPHY AND CHRONIC MICRO-VASCULAR ISCHEMIC CHANGES. OTHERWISE NORMAL MRI OF THE BRAIN WITHOUT INTRAVENOUS GADOLINIUM CONTRAST. EVIDENCE OF ACUTE STROKE: NO. Carotid Doppler Study 12/16/18 00:00 IMPRESSION: Atherosclerotic changes with no hemodynamically significant lesion. Chest X-Ray 12/16/18 15:45 IMPRESSION: NO ACUTE RADIOGRAPHIC FINDING IN THE CHEST. Assessment & Plan - Diagnosis (1) TIA (transient ischemic attack) Is this a current diagnosis for this admission?: Yes Plan: Now at baseline mental and functional status. Patient experienced a brief episode of nonresponsiveness with worsened expre ssive aphasia; onset yesterday morning. Per the patient's daughter, she is wheelchair-bound with intermittent expressive aphasia and residual right side weakness at baseline due to previous CVA events. Patient's daughter confirms that she has a history of DVTs, PE, GI bleed, and IVC filter; not a candidate for long-term anticoagulants. Head CT revealed chronic microvascular ischemic changes with prior lacunar infarct. Head MRI demonstrated atrophy and chronic microvascular ischemic changes; oth erwise normal MRI of the brain. Carotid Dopplers were negative for hemodynamically significant stenosis. Chest x-rays are benign. EKG demonstrates NSR with nonspecific T wave changes to the anterior leads. No changes noted by telemetry. Echocardiogram is pending. ST evaluation recommends ground meat and mechanical soft diet with thin liquids and crushed pills. PT/OT evaluations are pending. TSH, lipid, and A1c are all acceptable. Patient is admitted to [facility] on continuous cardiac telemetry. Continue full dose aspirin and statin therapy daily. Discharge planning is consulted; patient likely to return to [facility] at discharge. (2) Hyperlipidemia Is this a current diagnosis for this admission?: Yes Plan: Lipid panel is acceptable. Daily statin therapy. Cardiac diet. (3) Hypertension Is this a current diagnosis for this admission?: Yes Plan: Continues to be hypotensive. Reduced dose Carvedilol; holding parameters in place. We will continue holding Losartan. Cardiac diet. (4) Leukocytosis Is this a current diagnosis for this admission?: Yes Plan: Patient was noted to have an elevated white count of 21.1; up from 6.9 at admission and now trending down. The patient's mental status has returned to baseline and she remains afebrile and asymptomatic. Patient has been afebrile overnight and has no s/sx of infection. She did recently complete a course of antibiotics (Levaquin) for UTI. Urinalysis is negative for UTI. Urine culture demonstrates creatinine positive cocci. Blood cultures are pending. Repeat chest x-ray is benign. Possibly a stress reaction, however, with associated neuro symptoms (brief episode of unresponsiveness followed by intermittent worsened expressive aphasia) I was initially concerned that there was potential for occult infection or meningitis. Discussed with family members option for LP; adamantly declined at this time. She was empirically placed Rocephin 2 g IV daily; will adjust as cultures result. We will continue to monitor and adjust antibiotics as cultures result. (5) Anemia Qualifiers: Anemia type: iron deficiency Is this a current diagnosis for this admission?: Yes Plan: Patient appears to have chronic anemia with a baseline of 10.7. She was admitted with a hemoglobin of 8.0 which is trended down to 7.4, now 8.1 s/p 1 unit PRBC. Anemia panel does reveal iron deficiency; iron 15.4, ferritin 6.35 Occult stool pending. IV iron infusion. Hold Plavix. Multivitamin with iron supplement. Consider hematology consultation. grid inspector is consulted. (6) Hypotension Qualifiers: Hypotension type: unspecified hypotension type Qualified Code(s): I95.9 - Hypotension, unspecified Is this a current diagnosis for this admission?: Yes Plan: We will check a.m. cortisol level. Start low-dose Midodrin 3 times daily; hopefully blood pressures will improve so that patient can tolerate carvedilol and prevent further tachycardia. Reduced dose Carvedilol; holding parameters in place. Continue gentle IV fluids. We will continue holding Losartan. (7) Do not resuscitate Is this a current diagnosis for this admission?: Yes
[2018-12-17] MEDS: CEFTRIAXONE 2 GM/D5W RTU 2 GM/50 ML RTUPB IV SCH (17:35)
[2018-12-17] MEDS ORDERED: IRON SUCROSE COMPLEX 300 MG in NORMAL SALINE 250 ML IV ONE (19:00)
[2018-12-17] MEDS: MIDODRINE HCL 5 MG TABLET PO SCH (19:10)
[2018-12-17] MEDS: ATORVASTATIN CALCIUM 80 MG TABLET PO SCH (21:36)
[2018-12-17] MEDS: NORMAL SALINE 1000 ML 1,000 ML IV PRN (21:36)
[2018-12-17] MEDS: CETIRIZINE 10 MG TABLET PO SCH (21:37)
[2018-12-18] MEDS: LANSOPRAZOLE 30 MG TAB.RAP.DR PO SCH ×2 (06:07→18:56)
[2018-12-18] MEDS: HEPARIN SOD (PORCINE) 5,000 UNIT/ML 1 ML SYRINGE SUBCUT SCH ×3 (06:07→21:19)
[2018-12-18 06:30] LABS: HEMATOCRIT 25.7 % (36.0-47.0); HEMOGLOBIN 8.1 g/dL (12.0-15.5); MEAN CORPUSCULAR HEMOGLOBIN 21.8 pg (27.0-33.4); MEAN CORPUSCULAR HGB CONC 31.6 g/dL (32.0-36.0); MEAN CORPUSCULAR VOLUME 69 fl (80-97); PLATELET COUNT 273 10^3/uL (150-450); RED BLOOD COUNT 3.73 10^6/uL (3.72-5.28); RED CELL DISTRIBUTION WIDTH 20.2 % (11.5-14.0); WHITE BLOOD COUNT 8.6 10^3/uL (4.0-10.5)
[2018-12-18 06:52] LABS: ANION GAP 5 (5-19); BLOOD UREA NITROGEN 9 mg/dL (7-20); CALCIUM 7.9 mg/dL (8.4-10.2); CARBON DIOXIDE 23 mmol/L (22-30); CHLORIDE 110 mmol/L (98-107); GLUCOSE 82 mg/dL (75-110)
[2018-12-18] MEDS ORDERED: VANCOMYCIN HCL 0 MG in DEXTROSE 5%-WATER 250 ML IV NR (10:00)
[2018-12-18] MEDS: FLUTICASONE NASAL SPRAY 50 MCG/SPRY 120 SPRAY/16 GM NASL SCH (13:19)
[2018-12-18] MEDS: GABAPENTIN 100 MG CAPSULE PO SCH ×2 (13:19→21:19)
[2018-12-18] MEDS: MIDODRINE HCL 5 MG TABLET PO SCH ×3 (13:20→18:56)
[2018-12-18] MEDS: CYANOCOBALAMIN (VITAMIN B-12) 1,000 MCG TABLET PO SCH (13:20)
[2018-12-18] MEDS: OXYBUTYNIN CHLORIDE 5 MG TABLET PO SCH (13:20)
[2018-12-18] MEDS: ASPIRIN 325 MG TABLET, ENT COATED PO SCH (13:20)
[2018-12-18] MEDS: CARVEDILOL 6.25 MG TABLET PO SCH ×3 (16:47→22:26)
[2018-12-18] MEDS: LOSARTAN POTASSIUM 25 MG TABLET PO SCH (16:47)
[2018-12-18] MEDS ORDERED: VANCOMYCIN HCL 1,500 MG in DEXTROSE 5%-WATER 250 ML IV ONE (17:00)
--- NOTE | 2018-12-18 17:12 | PDOC PROGRESS REPORT ---
Subjective Progress Note for:: 12/18/18 Subjective:: The patient s a 83 year old female with a past medical history significant for multiple previous CVA/TIA events, DVT, PE, s/p IVC filter, HTN, HLD, GERD, depression, who has intermittent expressive aphasia and is wheelchair-bound at baseline secondary to previous CVAs who was admitted 12/15/2018 for TIA/CVA workup secondary to report of worsened expressive aphasia and short episode of nonresponsiveness. The patient was on morning rounds with HER-2 daughters present. She is found resting in bed comfortably on supplemental oxygen by nasal cannula. She reports slight nausea after "becoming choked up" on part of her breakfast. She denies continued difficulty with nausea, vomiting, abdominal pain, dyspnea, chest pain, or cough. She is A&O to self, place, and situation. She answered all questions clearly and appropriately, though with some occasional delayed speech which her two daughters tell me is her baseline. Patient denies fever, chills, headache, chest pain, palpitations, dyspnea, abdominal pain, vomiting and diarrhea. They have no other questions or concerns today. No other concerns per nursing. Reason For Visit: TIA Physical Exam Vital Signs: Temp Pulse Resp BP Pulse Ox 97.9 F 88 16 113/48 L 100 12/18/18 11:22 12/18/18 11:22 12/18/18 11:22 12/18/18 11:22 12/18/18 11:22 Intake & Output 12/17/18 12/18/18 12/19/18 06:59 06:59 06:59 Intake Total 2615 465 Balance 2615 465 Weight 61.9 kg 61.7 kg General appearance: PRESENT: no acute distress, cooperative, thin, well- developed Head exam: PRESENT: atraumatic, normocephalic Eye exam: PRESENT: conjunctiva pink, EOMI, PERRLA. ABSENT: scleral icterus Ear exam: PRESENT: normal external ear exam Mouth exam: PRESENT: moist, tongue midline Teeth exam: PRESENT: poor dentation Neck exam: ABSENT: carotid bruit, JVD, lymphadenopathy, thyromegaly Respiratory exam: PRESENT: clear to auscultation [place], symmetrical, unlabored, other - Supplemental oxygen by nasal cannula. ABSENT: rales, rhonchi, wheezes Cardiovascular exam: PRESENT: RRR, +S1, +S2. ABSENT: diastolic murmur, rubs, systolic murmur Pulses: PRESENT: normal dorsalis pedis pul Vascular exam: PRESENT: normal capillary refill GI/Abdominal exam: PRESENT: normal bowel sounds, soft. ABSENT: distended, guarding, mass, organolmegaly, rebound, tenderness Rectal exam: PRESENT: deferred Extremities exam: PRESENT: full ROM. ABSENT: calf tenderness, clubbing, pedal edema Neurological exam: PRESENT: alert, awake, oriented to person, oriented to place, oriented to situation, CN II-XII grossly intact, other - At baseline per family. ABSENT: motor sensory deficit Psychiatric exam: PRESENT: appropriate affect, normal mood. ABSENT: homicidal ideation, suicidal ideation Skin exam: PRESENT: dry, intact, warm. ABSENT: cyanosis, rash Results Laboratory Results: 12/18/18 06:02 12/18/18 06:02 12/18/18 12/18/18 06:02 06:02 WBC 8.6 RBC 3.73 Hgb 8.1 L Hct 25.7 L MCV 69 L MCH 21.8 L MCHC 31.6 L RDW 20.2 H Plt Count 273 Sodium 138.0 Potassium 4.0 Chloride 110 H Carbon Dioxide 23 Anion Gap 5 BUN 9 Creatinine 0.65 Est GFR ( Amer) > 60 Est GFR (Non-Af Amer) > 60 Glucose 82 Calcium 7.9 L 12/16/18 13:05 Clean Catch Midstream Urine Culture - Final Mrsa (Meth Resis Staph Aureus) 12/15/18 12/15/18 12/16/18 12:11 12:11 09:49 Creatine Kinase 96 CK-MB (CK-2) 0.99 Troponin I < 0.012 < 0.012 Impressions: Head CT 12/15/18 11:42 IMPRESSION: Stable nonspecific white matter changes and prior lacunar infarcts without evidence of acute large vascular territory infarct. MRI would be more sensitive for evaluation of acute on chronic event. EVIDENCE OF ACUTE STROKE: NO. Head MRI 12/15/18 17:38 IMPRESSION: ATROPHY AND CHRONIC MICRO-VASCULAR ISCHEMIC CHANGES. OTHERWISE NORMAL MRI OF THE BRAIN WITHOUT INTRAVENOUS GADOLINIUM CONTRAST. EVIDENCE OF ACUTE STROKE: NO. Carotid Doppler Study 12/16/18 00:00 IMPRESSION: Atherosclerotic changes with no hemodynamically significant lesion. Chest X-Ray 12/16/18 15:45 IMPRESSION: NO ACUTE RADIOGRAPHIC FINDING IN THE CHEST. Assessment & Plan - Diagnosis (1) TIA (transient ischemic attack) Is this a current diagnosis for this admission?: Yes Plan: Possible TIA; however, now believe this event to have been more most likely related to sepsis/UTI/dehydration. Now at baseline mental and functional status. Patient experienced a brief episode of nonresponsiveness with worsened expressive aphasia; onset yesterday morning. Per the patient's daughter, she is wheelchair-bound with intermittent expressive aphasia and residual right side weakness at baseline due to previous CVA events. Patient's daughter confirms that she has a history of DVTs, PE, GI bleed, and IVC filter; not a candidate for long-term anticoagulants. Head CT revealed chronic microvascular ischemic changes with prior lacunar infarct. Head MRI demonstrated atrophy and chronic microvascular ischemic changes; otherwise normal MRI of the brain. Carotid Dopplers were negative for hemodynamically significant stenosis. Chest x-rays are benign. EKG demonstrates NSR with nonspecific T wave changes to the anterior leads. No changes noted by telemetry. Echocardiogram is pending. ST evaluation recommends ground meat and mechanical soft diet with thin liquids and crushed pills. PT/OT evaluations are pending. TSH, lipid, and A1c are all acceptable. Patient is admitted to [facility] on continuous cardiac telemetry. Continue full dose aspirin and statin therapy daily. Discharge planning is consulted; patient likely to return to [facility] at discharge. (2) Hyperlipidemia Is this a current diagnosis for this admission?: Yes Plan: Lipid panel is acceptable. Daily statin therapy. Cardiac diet. (3) Hypertension Is this a current diagnosis for this admission?: Yes Plan: Improved blood pressure today. Reduced dose Carvedilol; holding parameters in place. We will continue holding Losartan. Cardiac diet. (4) Leukocytosis Is this a current diagnosis for this admission?: Yes Plan: Resolved; secondary to UTI. Patient was noted to have an elevated white count of 21.1; up from 6.9 at admission and now trending down. The patient's mental status has returned to baseline and she remains afebrile and asymptomatic. She did recently complete a course of antibiotics (Levaquin) for UTI and does report intermittent dysuria. Urinalysis is negative for UTI. Urine culture MRSA. Blood cultures are pending. Repeat chest x-ray is benign. IV Rocephin discontinued; start IV vancomycin for treatment of MRSA urinary tra ct infection. We will plan on 2-3 days of IV antibiotics and then transition to Macrobid at time of discharge to home secondary to the severity of the illness on presentation (hypotensive, tachycardia, altered mental status). (5) Anemia Qualifiers: Anemia type: iron deficiency Is this a current diagnosis for this admission?: Yes Plan: Patient appears to have chronic anemia with a baseline of 10.7. She was admitted with a hemoglobin of 8.0 which is trended down to 7.4, now 8.1 s/p 1 unit PRBC and IV iron x1. Anemia panel does reveal iron deficiency; iron 15.4, ferritin 6.35 Occult stool pending. Hold Plavix. Multivitamin with iron supplement. Consider hematology consultation. news clerk is consulted. (6) Hypotension Qualifiers: Hypotension type: unspecified hypotension type Qualified Code(s): I95.9 - Hypotension, unspecified Is this a current diagnosis for this admission?: Yes Plan: Resolved. Start low-dose Midodrin 3 times daily; hopefully blood pressures will improve so that patient can tolerate carvedilol and prevent further tachycardia. Reduced dose Carvedilol; holding parameters in place. Continue gentle IV fluids. We will continue holding Losartan. (7) Do not resuscitate Is this a current diagnosis for this admission?: Yes (8) Sepsis Qualifiers: Sepsis type: methicillin resistant Staphylococcus aureus Qualified Code(s): A41.02 - Sepsis due to Methicillin resistant Staphylococcus aureus Is this a current diagnosis for this admission?: Yes Plan: Resolved. Sepsis due to MRSA urinary tract infection, present on arrival, evidenced by acute encephalopathy, map less than 70 (52 on presentation in the emergency department), tachycardia (HR 104), and tachypnea (RR 26). Urine culture positive for MRSA. Blood cultures are negative at 48 and 24 hours. Patient was initially placed on IV Rocephin; this is transition to vancomycin based on urine culture identification and sensitivity. She received gentle IV fluids and supportive care. - Time Time Spent with patient: 15-24 minutes Medications reviewed and adjusted accordingly: Yes Anticipated discharge: SNF - Long-term resident Within: within 72 hours
--- NOTE | 2018-12-18 19:54 | Progress Note ---
Provider Note Provider Note: ID Consult Note Asked by Pharmacy to review patient's chart. Pt not seen or examined. Ms. Prado is a 83 year old woman with PMH including DVT, PE s/p IVC filter, HTN, HLD, GERD, depression, multiple previous TIA/CVA events and inability to ambulate d/t residual right sided weakness. Ms Prado presented to the ED on 12/15 with after having rapidly resolving strokelike symptoms with numbness/tingling in L face, increased trouble speaking, and transient L facial droop. Per ED provider, pt denied f/c, sore throat, SOB, CP. Per H&P, pt also had no abdominal pain or other GI symptoms, no dysuria or hematuria. She was appreciated to have mild L facial droop and mild expressive aphasia, poor dentition, clear lungs, no murmurs, soft NT abdomen, no rashes. Labs included urinalysis with no WBCs or leukocyte esterase. WBC count was initially 6.9, then 21 the next day on 12/16 and has trended down since then. A u rine culture was obtained on 12/16 that grew >100k cfu MRSA. Blood cultures from 12/16 are negative x 48h as are repeat blood cultures on 12/17. TTE was performed, which did not show an embolic source for a stroke. Rocephin was started on 12/16 for suspected UTI, and based on UCx culture result, Rocephin was changed to vancomycin today. Pt admitted to some intermittent dysuria. Impression/Recommendations Interpretation of MRSA from urine culture depends on the clinical setting. This case is equivocal. Lack of pyuria on U/A has high negative predictive value against UTI being present, and it would be unsual to have Staph aureus as a true cause of a UTI. MRSA is not a typical uropathogen, and leukocytosis started to improve prior to vancomycin (on ineffective therapy for MRSA). Blood cultures a re also negative, which is reassuring (as often MRSA in the urine is there as a result of bacteremia). Possibilities include urethral irritation from straight cath producing dysuria and contamination of the urine culture with MRSA rather than a UTI, but if the patient continues to have urinary urgency and dysuria, I agree, Macrobid appears reasonable. Yg Guerra MD [facility] pager [phone]
[2018-12-18] MEDS: NORMAL SALINE 1000 ML 1,000 ML IV PRN (21:18)
[2018-12-18] MEDS: LORAZEPAM 0.5 MG TABLET PO SCH (21:19)
[2018-12-18] MEDS: ATORVASTATIN CALCIUM 80 MG TABLET PO SCH (21:19)
[2018-12-18] MEDS: CETIRIZINE 10 MG TABLET PO SCH (21:19)
[2018-12-19] MEDS: LANSOPRAZOLE 30 MG TAB.RAP.DR PO SCH ×2 (05:10→16:00)
[2018-12-19] MEDS: VANCOMYCIN HCL 500 MG in DEXTROSE 5%-WATER 100 ML IV SCH ×2 (05:10→17:09)
[2018-12-19] MEDS: HEPARIN SOD (PORCINE) 5,000 UNIT/ML 1 ML SYRINGE SUBCUT SCH ×3 (05:11→22:03)
[2018-12-19] MEDS: FLUTICASONE NASAL SPRAY 50 MCG/SPRY 120 SPRAY/16 GM NASL SCH (10:05)
[2018-12-19] MEDS: GABAPENTIN 100 MG CAPSULE PO SCH ×2 (10:06→22:03)
[2018-12-19] MEDS: LOSARTAN POTASSIUM 25 MG TABLET PO SCH (10:06)
[2018-12-19] MEDS: CARVEDILOL 6.25 MG TABLET PO SCH ×2 (10:06→22:02)
[2018-12-19] MEDS: MIDODRINE HCL 5 MG TABLET PO SCH ×3 (10:06→17:10)
[2018-12-19] MEDS: OXYBUTYNIN CHLORIDE 5 MG TABLET PO SCH (10:06)
[2018-12-19] MEDS: ASPIRIN 325 MG TABLET, ENT COATED PO SCH (10:07)
[2018-12-19] MEDS: CYANOCOBALAMIN (VITAMIN B-12) 1,000 MCG TABLET PO SCH (10:07)
[2018-12-19] MEDS ORDERED: ALBUTEROL SULFATE 0.083% NEB 2.5 MG/3 ML AMPUL NEB PRN (13:18)
--- NOTE | 2018-12-19 13:43 | PDOC PROGRESS REPORT ---
Subjective Progress Note for:: 12/19/18 Subjective:: The patient s a 83 year old female with a past medical history significant for multiple previous CVA/TIA events, DVT, PE, s/p IVC filter, HTN, HLD, GERD, depression, who has intermittent expressive aphasia and is wheelchair-bound at baseline secondary to previous CVAs who was admitted 12/15/2018 for TIA/CVA workup secondary to report of worsened expressive aphasia and short episode of nonresponsiveness. The patient was on morning rounds with her daughter present. She is found resting in bed comfortably on supplemental oxygen by nasal cannula. She reports continued nonproductive cough, without dyspnea, orthopnea, chest pain, palpitations, nausea or vomiting. She is A&O to self, place, and situation. She answered all questions clearly and appropriately, though with some occasional delayed speech which her daughters tell me is her baseline. They have no other questions or concerns today. No other concerns per nursing. Reason For Visit: TIA Physical Exam Vital Signs: Temp Pulse Resp BP Pulse Ox 97.8 F 93 16 119/41 L 100 12/19/18 11:25 12/19/18 11:25 12/19/18 11:25 12/19/18 11:25 12/19/18 11:25 Intake & Output 12/18/18 12/19/18 12/20/18 06:59 06:59 06:59 Intake Total 465 1550 Balance 465 1550 Weight 61.7 kg 62.4 kg General appearance: PRESENT: no acute distress, cooperative, thin, well- developed Head exam: PRESENT: atraumatic, normocephalic Eye exam: PRESENT: conjunctiva pink, EOMI, PERRLA. ABSENT: scleral icterus Ear exam: PRESENT: normal external ear exam Mouth exam: PRESENT: moist, tongue midline Teeth exam: PRESENT: poor dentation Neck exam: ABSENT: carotid bruit, JVD, lymphadenopathy, thyromegaly Respiratory exam: PRESENT: clear to auscultation [place], decreased breath sounds - bibasilar, symmetrical, unlabored, other. ABSENT: rales, rhonchi, wheezes Cardiovascular exam: PRESENT: RRR, +S1, +S2. ABSENT: diastolic murmur, rubs, systolic murmur Pulses: PRESENT: normal dorsalis pedis pul Vascular exam: PRESENT: normal capillary refill GI/Abdominal exam: PRESENT: normal bowel sounds, soft. ABSENT: distended, guarding, mass, organolmegaly, rebound, tenderness Rectal exam: PRESENT: deferred Extremities exam: PRESENT: full ROM. ABSENT: calf tenderness, clubbing, pedal edema Neurological exam: PRESENT: alert, awake, oriented to person, oriented to place, oriented to situation, CN II-XII grossly intact. ABSENT: motor sensory deficit Psychiatric exam: PRESENT: appropriate affect, normal mood, other - At baseline per family. ABSENT: homicidal ideation, suicidal ideation Skin exam: PRESENT: dry, intact, warm. ABSENT: cyanosis, rash Results Laboratory Results: 12/18/18 06:02 12/18/18 06:02 12/16/18 13:05 Clean Catch Midstream Urine Culture - Final Mrsa (Meth Resis Staph Aureus) 12/15/18 12/15/18 12/16/18 12:11 12:11 09:49 Creatine Kinase 96 CK-MB (CK-2) 0.99 Troponin I < 0.012 < 0.012 Impressions: Head CT 12/15/18 11:42 IMPRESSION: Stable nonspecific white matter changes and prior lacunar infarcts without evidence of acute large vascular territory infarct. MRI would be more sensitive for evaluation of acute on chronic event. EVIDENCE OF ACUTE STROKE: NO. Head MRI 12/15/18 17:38 IMPRESSION: ATROPHY AND CHRONIC MICRO-VASCULAR ISCHEMIC CHANGES. OTHERWISE NORMAL MRI OF THE BRAIN WITHOUT INTRAVENOUS GADOLINIUM CONTRAST. EVIDENCE OF ACUTE STROKE: NO. Carotid Doppler Study 12/16/18 00:00 IMPRESSION: Atherosclerotic changes with no hemodynamically significant lesion. Chest X-Ray 12/16/18 15:45 IMPRESSION: NO ACUTE RADIOGRAPHIC FINDING IN THE CHEST. Assessment & Plan - Diagnosis (1) TIA (transient ischemic attack) Is this a current diagnosis for this admission?: Yes Plan: Possible TIA; however, now believe this event to have been more most likely related to sepsis/UTI/dehydration. At baseline mental and functional status. Patient experienced a brief episode of nonresponsiveness with worsened expressive aphasia; onset yesterday morning. Per the patient's daughter, she is wheelchair-bound with intermittent expressive aphasia and residual right side weakness at baseline due to previous CVA events. Patient's daughter confirms that she has a history of DVTs, PE, GI bleed, and IVC filter; not a candidate for long-term anticoagulants. Head CT revealed chronic microvascular ischemic changes with prior lacunar in farct. Head MRI demonstrated atrophy and chronic microvascular ischemic changes; otherwise normal MRI of the brain. Carotid Dopplers were negative for hemodynamically significant stenosis. Chest x-rays are benign. EKG demonstrates NSR with nonspecific T wave changes to the anterior leads. No changes noted by telemetry. Echocardiogram is pending. ST evaluation recommends ground meat and mechanical soft diet with thin liquids and crushed pills. PT/OT evaluations are pending. TSH, lipid, and A1c are all acceptable. Patient is admitted to [facility] on continuous cardiac telemetry. Continue full dose aspirin and statin therapy daily. Discharge planning is consulted; patient likely to return to [facility] at discharge. (2) Hyperlipidemia Is this a current diagnosis for this admission?: Yes Plan: Lipid panel is acceptable. Daily statin therapy. Cardiac diet. (3) Hypertension Is this a current diagnosis for this admission?: Yes Plan: Improved blood pressure today. Reduced dose Carvedilol; holding parameters in place. Tolerating well. We will continue holding Losartan. Cardiac diet. (4) Leukocytosis Is this a current diagnosis for this admission?: Yes Plan: Resolved; secondary to UTI. Patient was noted to have an elevated white count of 21.1; up from 6.9 at admission and now trending down. The patient's mental status has returned to baseline and she remains afebrile and asymptomatic. She did recently complete a course of antibiotics (Levaquin) for UTI and does report intermittent dysuria. Urinalysis is negative for UTI. Urine culture MRSA. Blood cultures are negative at 48 hours. Repeat chest x-ray is benign. IV Rocephin discontinued; start IV vancomycin for treatment of MRSA urinary tract infection. Continue vancomycin today and transition to Macrobid at time of discharge to home secondary to the severity of the illness on presentation (hypotensive, tachycardia, altered mental status). (5) Anemia Qualifiers: Anemia type: iron deficiency Is this a current diagnosis for this admission?: Yes Plan: Patient appears to have chronic anemia with a baseline of 10.7. She was admitted with a hemoglobin of 8.0 which is trended down to 7.4, now 8.1 s/p 1 unit PRBC and IV iron x1. Anemia panel does reveal iron deficiency; iron 15.4, ferritin 6.35 Occult stool pending. Hold Plavix. Multivitamin with iron supplement. Consider hematology consultation. farmer and grazier is consulted. (6) Hypotension Qualifiers: Hypotension type: unspecified hypotension type Qualified Code(s): I95.9 - Hypotension, unspecified Is this a current diagnosis for this admission?: Yes Plan: Resolved. Start low-dose Midodrin 3 times daily; hopefully blood pressures will improve so that patient can tolerate carvedilol and prevent further tachycardia. Reduced dose Carvedilol; holding parameters in place. Continue gentle IV fluids. We will continue holding Losartan. (7) Do not resuscitate Is this a current diagnosis for this admission?: Yes (8) Sepsis Qualifiers: Sepsis type: methicillin resistant Staphylococcus aureus Qualified Code(s): A41.02 - Sepsis due to Methicillin resistant Staphylococcus aureus Is this a current diagnosis for this admission?: Yes Plan: Resolved. Sepsis due to MRSA urinary tract infection, present on arrival, evidenced by acute encephalopathy, map less than 70 (52 on presentation in the emergency department), tachycardia (HR 104), and tachypnea (RR 26). Urine culture positive for MRSA. Blood cultures are negative at 48 and 24 hours. Patient was initially placed on IV Rocephin; this is transition to vancomycin based on urine culture identification and sensitivity. She received gentle IV fluids and supportive care. - Time Time Spent with patient: 15-24 minutes Medications reviewed and adjusted accordingly: Yes Anticipated discharge: SNF - Established resident at [facility] Within: within 24 hours
[2018-12-19] MEDS: GUAIFENESIN SYRP 200 MG/10 ML UDC PO PRN ×2 (13:46→17:48)
[2018-12-19] MEDS: BENZONATATE 100 MG CAPSULE PO PRN (16:00)
--- NOTE | 2018-12-19 16:58 | RADIOLOGY REPORT (SQ) ---
EXAM DESCRIPTION: CHEST SINGLE VIEW COMPLETED DATE/TIME: 12/19/2018 4:45 pm REASON FOR STUDY: cough, dysphagia, ? aspiration COMPARISON: 12/16/2018 EXAM PARAMETERS: NUMBER OF VIEWS: One view. TECHNIQUE: Single frontal radiographic view of the chest acquired. RADIATION DOSE: NA LIMITATIONS: None. FINDINGS: LUNGS AND PLEURA: Minimal opacities at the left base. Right lung is clear. Low lung volu mes. MEDIASTINUM AND HILAR STRUCTURES: No masses. Contour normal. HEART AND VASCULAR STRUCTURES: Heart normal in size. Normal vasculature. BONES: No acute findings. HARDWARE: None in the chest. OTHER: No other significant finding. IMPRESSION: Minimal left basilar opacity. Aspiration complex in the differential. TECHNICAL DOCUMENTATION: JOB ID: [id number] [employer]- All Rights Reserved Reading location - IP/workstation name: [email or web address]
[2018-12-19] MEDS: LORAZEPAM 0.5 MG TABLET PO SCH (22:02)
[2018-12-19] MEDS: ATORVASTATIN CALCIUM 80 MG TABLET PO SCH (22:02)
[2018-12-19] MEDS: CETIRIZINE 10 MG TABLET PO SCH (22:02)
[2018-12-19] MEDS: NORMAL SALINE 1000 ML 1,000 ML IV PRN (22:03)
[2018-12-20] MEDS: HEPARIN SOD (PORCINE) 5,000 UNIT/ML 1 ML SYRINGE SUBCUT SCH ×2 (05:34→13:21)
[2018-12-20] MEDS: LANSOPRAZOLE 30 MG TAB.RAP.DR PO SCH (05:34)
[2018-12-20] MEDS: VANCOMYCIN HCL 500 MG in DEXTROSE 5%-WATER 100 ML IV SCH (05:46)
[2018-12-20 06:23] LABS: HEMATOCRIT 25.4 % (36.0-47.0); MEAN CORPUSCULAR HEMOGLOBIN 21.9 pg (27.0-33.4); MEAN CORPUSCULAR HGB CONC 31.4 g/dL (32.0-36.0); MEAN CORPUSCULAR VOLUME 70 fl (80-97); PLATELET COUNT 302 10^3/uL (150-450); RED BLOOD COUNT 3.63 10^6/uL (3.72-5.28)
[2018-12-20 07:00] LABS: VANCOMYCIN,TROUGH 9.2 ug/mL (5.0-20.0)
[2018-12-20 07:59] VITALS: BP 119/41
[2018-12-20] MEDS: LOSARTAN POTASSIUM 25 MG TABLET PO SCH (09:05)
[2018-12-20] MEDS: CARVEDILOL 6.25 MG TABLET PO SCH (09:05)
[2018-12-20] MEDS: GABAPENTIN 100 MG CAPSULE PO SCH (09:05)
[2018-12-20] MEDS: MIDODRINE HCL 5 MG TABLET PO SCH ×2 (09:05→13:23)
[2018-12-20] MEDS: FLUTICASONE NASAL SPRAY 50 MCG/SPRY 120 SPRAY/16 GM NASL SCH (09:06)
[2018-12-20] MEDS: OXYBUTYNIN CHLORIDE 5 MG TABLET PO SCH (09:06)
[2018-12-20] MEDS: BENZONATATE 100 MG CAPSULE PO PRN (09:06)
[2018-12-20] MEDS: ASPIRIN 325 MG TABLET, ENT COATED PO SCH (09:06)
[2018-12-20] MEDS: CYANOCOBALAMIN (VITAMIN B-12) 1,000 MCG TABLET PO SCH (09:06)
--- NOTE | 2018-12-20 12:11 | PDOC TRANSFER SUMMARY ---
General - Admit/Disc Date/PCP Admission Date/Primary Care Provider: 12/16/18 18:14 KAREN BOSWELL Discharge Date: 12/20/18 - Discharge Diagnosis (1) TIA (transient ischemic attack) Is this a current diagnosis for this admission?: Yes Summary: Possible TIA; however, now believe this event to have been more most likely related to sepsis/UTI/dehydration. Patient experienced a brief episode of nonresponsiveness with worsened expressive aphasia; onset day prior to admission. Per the patient's daughter, she is wheelchair-bound with intermittent expressive aphasia and residual right side weakness at baseline due to previous CVA events. Patient's daughter confirms that she has a history of DVTs, PE, GI bleed, and IVC filter; not a candidate for long-term anticoagulants. Head CT revealed chronic microvascular ischemic changes with prior lacunar infarct. Head MRI demonstrated atrophy and chronic microvascular ischemic changes; otherwise normal MRI of the brain. Carotid Dopplers were negative for hemodynamically significant stenosis. Chest x-rays are benign. EKG demonstrates NSR with nonspecific T wave changes to the anterior leads. No changes noted by telemetry. Echocardiogram is pending. ST evaluation recommends ground meat and mechanical soft diet with thin liquids and crushed pills. PT/OT evaluations are pending. TSH, lipid, and A1c are all acceptable. The patient was admitted to [facility] on continuous cardiac telemetry. She was placed on full dose aspirin and statin therapy. Extensive workup as above; patient's symptoms gradually resolved and she is now returned to her baseline mental and functional status. (2) Hyperlipidemia Is this a current diagnosis for this admission?: Yes Summary: Lipid panel is acceptable. Recommend continuing daily statin therapy and cardiac diet. (3) Hypertension Is this a current diagnosis for this admission?: Yes Summary: Patient and family endorse a history of hypertension; she was somewhat hypotensive during this admission. She has been placed on Midodrin. Have resumed a lower dose of carvedilol, with holding parameters in place, secondary to rebound tachycardia. Recommend continuing to hold losartan and reinstituting as necessary. Recommend continuing cardiac diet. (4) Leukocytosis Is this a current diagnosis for this admission?: Yes Summary: Resolved; secondary to UTI. Patient was noted to have an elevated white count of 21.1; up from 6.9 at admission and now trending down. The patient's mental status has returned to baseline and she remains afebrile and asymptomatic. She did recently complete a course of antibiotics (Levaquin) for UTI and does report intermittent dysuria. Urinalysis is negative for UTI. Urine culture MRSA. Blood cultures are negative at 48 hours. Repeat chest x-ray is benign. The patient was initially placed on IV Rocephin for empiric treatment of urinary tract infection and concern for meningitis. She was transitioned to IV vancomycin for treatment of MRSA urinary tract infection x48 hours. She remains afebrile with a normal WBC, therefore, will transition to p.o. Macrobid to complete course of therapy at discharge. (5) Anemia Is this a current diagnosis for this admission?: Yes Summary: Patient appears to have chronic anemia with a baseline of 10.7. She was admitted with a hemoglobin of 8.0 which is trended down to 7.4, now 8.1 s/p 1 unit PRBC and IV iron x1. Anemia panel does reveal iron deficiency; iron 15.4, ferritin 6.35 The patient's home dose Plavix was held while admitted secondary to anemia. May resume at discharge. Recommend multivitamin with iron supplementation. May also consider outpatient hematology consult. Recommend follow-up CBC in 7-10 days. (6) Hypotension Is this a current diagnosis for this admission?: Yes Summary: Resolved. Started on low-dose Midodrin 3 times daily; blood pressures have improved so that patient can tolerate carvedilol for prevention of further tachycardia. Continue reduced dose Carvedilol; holding parameters in place. Recommend continueing to hold Losartan; may resume as indicated. (7) Sepsis Is this a current diagnosis for this admission?: Yes Summary: Resolved. Sepsis due to MRSA urinary tract infection, present on arrival, evidenced by acute encephalopathy, map less than 70 (52 on presentation in the emergency department), tachycardia (HR 104), and tachypnea (RR 26). Urine culture positive for MRSA. Blood cultures are negative at 72 hours. Patient was initially placed on IV Rocephin; this was transitioned to vancomycin based on urine culture identification and sensitivity. No stable for transition to p.o. macrobid to complete course of therapy. She received gentle IV fluids and supportive care. (8) Do not resuscitate Is this a current diagnosis for this admission?: Yes (9) Ventricular tachycardia Is this a current diagnosis for this admission?: Yes Summary: The patient was noted to have short runs of ventricular tachycardia; spontaneously abating within 6 seconds, and frequent PVCs after discontinuing carvedilol secondary to hypotension. Chemistries were monitored and electrolytes replaced as necessary. Patient was placed on low-dose Midodrin with improvement in blood pressures to allow for resumption of carvedilol. The patient had no further episodes of ventricular tachycardia. She remained asymptomatic during events and troponins remain negative. - Additional Information Resuscitation Status: Do Not Resuscitate Discharge Diet: As Tolerated - [facility] soft wtih thin liquids Discharge Activity: Activity As Tolerated, Balance Activity w/Rest Prescriptions: Benzonatate [Tessalon Perles 100 mg Capsule] 100 mg PO Q8HP PRN #30 capsule PRN Reason: Carvedilol [Coreg 6.25 mg Tablet] 3.125 mg PO Q12 #60 tablet Lorazepam [Ativan 0.5 mg Tablet] 0.5 mg PO QHS #7 tablet Midodrine HCl [Proamatine 5 mg Tablet] 5 mg PO TID #90 tablet Nitrofurantoin Macrocrystal [Macrodantin] 100 mg PO BID #10 capsule Home Medications: Gabapentin [Neurontin 100 mg Capsule] 100 mg PO Q12 02/08/17 Losartan Potassium [Cozaar 25 mg Tablet] 25 mg PO DAILY 02/08/17 Ranitidine HCl [Zantac 150 mg Tablet] 150 mg PO BID 02/08/17 Aspirin 81 mg PO DAILY 09/30/17 Oxybutynin Chloride 5 mg PO DAILY 09/30/17 Pravastatin Sodium 40 mg PO DAILY 09/30/17 Cetirizine HCl [Zyrtec 10 mg Tablet] 10 mg PO QHS 12/15/18 Citalopram Hydrobromide [Celexa 20 mg Tablet] 30 mg PO DAILY 12/15/18 Cyanocobalamin (Vitamin B-12) [Vitamin B-12 1000 mcg Tablet] 1,000 mcg PO DAILY 12/15/18 Fluticasone Propionate [Flonase Nasal [place] 50 Mcg/[place] 16 gm] 2 sprays NASL DAILY 12/15/18 Acetaminophen [Tylenol 325 mg Tablet] 650 mg PO Q4HP PRN tablet 12/20/18 Benzonatate [Tessalon Perles 100 mg Capsule] 100 mg PO Q8HP PRN #30 capsule 12/20/18 Carvedilol [Coreg 6.25 mg Tablet] 3.125 mg PO Q12 #60 tablet 12/20/18 Docusate Sodium [Colace 100 mg Capsule] 100 mg PO BIDP PRN capsule 12/20/18 Guaifenesin [Robitussin Syrup 200 mg/10 ml Ud Cup] 200 mg PO Q4HP PRN udc 12/20/18 Lorazepam [Ativan 0.5 mg Tablet] 0.5 mg PO QHS #7 tablet 12/20/18 Midodrine HCl [Proamatine 5 mg Tablet] 5 mg PO TID #90 tablet 12/20/18 Nitrofurantoin Macrocrystal [Macrodantin] 100 mg PO BID #10 capsule 12/20/18 History of Present Illness Admission Date/PCP: 12/16/18 18:14 KAREN BOSWELL History of Present Illness: TAMARA STEPHENS is a 83 year old female with a past medical history significant for multiple previous CVA/TIA events, DVT, PE, s/p IVC filter, HTN, HLD, GERD, d epression, who has intermittent expressive aphasia and is wheelchair-bound at baseline secondary to previous CVAs and presented to the emergency department today via EMS with a complaint of decreased mental status, expressive aphasia, and a left facial droop. The patient's left facial droop has resolved and she continues to have delayed/slurred speech, but is near her baseline per her daughter. Evaluation in the emergency department revealed anemia with a hemoglobin of 8.0 (baseline 10), mild hyperkalemia (K 5.6), unremarkable EKG, benign chest x-ray, and head CT that demonstrated chronic microvascular ischemic changes and prior lacunar infarct without evidence of acute CVA. She is referred to the hospitalist service for admission and TIA/CVA workup. Physical Exam Vital Signs: Temp Pulse Resp BP Pulse Ox 98.1 F 83 14 119/41 L 94 12/20/18 07:36 12/20/18 11:12 12/20/18 11:12 12/20/18 07:36 12/20/18 11:12 Intake & Output 12/19/18 12/20/18 12/21/18 06:59 06:59 06:59 Intake Total 1550 1768 768 Balance 1550 1768 768 Weight 62.4 kg 62.8 kg General appearance: PRESENT: no acute distress, cooperative, thin, well- developed Head exam: PRESENT: atraumatic, normocephalic Eye exam: PRESENT: conjunctiva pink, EOMI, PERRLA. ABSENT: scleral icterus Ear exam: PRESENT: normal external ear exam Mouth exam: PRESENT: moist, tongue midline Teeth exam: PRESENT: poor dentation Neck exam: ABSENT: carotid bruit, JVD, lymphadenopathy, thyromegaly Respiratory exam: PRESENT: clear to auscultation [place], decreased breath sounds - Bibasilar, symmetrical, unlabored. ABSENT: rales, rhonchi, wheezes Cardiovascular exam: PRESENT: RRR, +S1, +S2. ABSENT: diastolic murmur, rubs, systolic murmur Pulses: PRESENT: normal dorsalis pedis pul Vascular exam: PRESENT: normal capillary refill GI/Abdominal exam: PRESENT: normal bowel sounds, soft. ABSENT: distended, guarding, mass, organolmegaly, rebound, tenderness Rectal exam: PRESENT: deferred Extremities exam: PRESENT: full ROM - Baseline right-sided weakness. ABSENT: calf tenderness, clubbing, pedal edema Neurological exam: PRESENT: alert, awake, oriented to person, oriented to place, oriented to time, oriented to situation, CN II-XII grossly intact, other - Intermittent expressive aphasia; at baseline per family. ABSENT: motor sensory deficit Psychiatric exam: PRESENT: appropriate affect, normal mood. ABSENT: homicidal ideation, suicidal ideation Skin exam: PRESENT: dry, intact, warm. ABSENT: cyanosis, rash Results Laboratory Results: 12/20/18 05:41 12/18/18 06:02 12/20/18 05:41 WBC 8.0 RBC 3.63 L Hgb 8.0 L Hct 25.4 L MCV 70 L MCH 21.9 L MCHC 31.4 L RDW 20.0 H Plt Count 302 12/15/18 12/15/18 12/16/18 12:11 12:11 09:49 Creatine Kinase 96 CK-MB (CK-2) 0.99 Troponin I < 0.012 < 0.012 Impressions: Head CT 12/15/18 11:42 IMPRESSION: Stable nonspecific white matter changes and prior lacunar infarcts without evidence of acute large vascular territory infarct. MRI would be more sensitive for evaluation of acute on chronic event. EVIDENCE OF ACUTE STROKE: NO. Head MRI 12/15/18 17:38 IMPRESSION: ATROPHY AND CHRONIC MICRO-VASCULAR ISCHEMIC CHANGES. OTHERWISE NORMAL MRI OF THE BRAIN WITHOUT INTRAVENOUS GADOLINIUM CONTRAST. EVIDENCE OF ACUTE STROKE: NO. Carotid Doppler Study 12/16/18 00:00 IMPRESSION: Atherosclerotic changes with no hemodynamically significant lesion. Chest X-Ray 12/19/18 00:00 IMPRESSION: Minimal left basilar opacity. Aspiration complex in the differential. Qualifiers - * PATIENT BEING DISCHARGED WITH ANY OF THE FOLLOWING DIAGNOSIS: No Plan Discharge Plan: Discharge to [facility] with the patient is an established resident. Complete course of antibiotics. Follow-up with primary care provider within 1 week. Return to the emergency department as needed. Time Spent: Less than 30 Minutes
[2018-12-20] MEDS ORDERED: VANCOMYCIN HCL 750 MG in DEXTROSE 5%-WATER 250 ML IV SCH (18:00)
== END 2018-12-20 14:00 | DRG 871 ==
LOC: ER 11:42 → INTOOBSV 14:48 → EH 14:48 → 3S 19:13 → OBSVTOIN 12-16 18:14
PROVIDERS: ADMIT Internal Medicine; ATTEND Internal Medicine
DX: A41.9 Sepsis, unspecified organism (principal); G93.41 Metabolic encephalopathy; G45.9 Transient cerebral ischemic attack, unspecified; R47.01 Aphasia; I69.351 Hemiplegia and hemiparesis following cerebral infarction affecting right dominant side; N39.0 Urinary tract infection, site not specified; I47.2 Ventricular tachycardia; R47.1 Dysarthria and anarthria; D50.9 Iron deficiency anemia, unspecified; B95.62 Methicillin resistant Staphylococcus aureus infection as the cause of diseases classified elsewhere; F32.9 Major depressive disorder, single episode, unspecified; K21.9 Gastro-esophageal reflux disease without esophagitis; E87.5 Hyperkalemia; E78.5 Hyperlipidemia, unspecified; I25.10 Atherosclerotic heart disease of native coronary artery without angina pectoris; I69.320 Aphasia following cerebral infarction; I50.9 Heart failure, unspecified; Z66 Do not resuscitate; I11.0 Hypertensive heart disease with heart failure; M19.90 Unspecified osteoarthritis, unspecified site; R29.810 Facial weakness; Z95.828 Presence of other vascular implants and grafts; Z86.718 Personal history of other venous thrombosis and embolism; Z86.711 Personal history of pulmonary embolism; Z99.3 Dependence on wheelchair; Z88.5 Allergy status to narcotic agent; Z79.899 Other long term (current) drug therapy
CPT/HCPCS: 36415; 36430; 70450; 70551; 71045; 80048; 80053; 80061; 80202; 81001; 82550; 82553; 82607; 82728; 82746; 82962; 83036; 83540; 83550; 84443; 84484; 85025; 85027; 85045; 85610; 85730; 86850; 86900; 86901; 86920; 87040; 87086; 87088; 87186; 93005; 93010; 93306; 93880; 96374; 99285; G0378; J0696; J1644; J1756; J2405; J3370; J3490; J7030; J7050; J7060; P9016